=== PATIENT | female | born 1940 ===

== ENCOUNTER 2016-12-31 14:44 | Inpatient (IN) | payer MEDICARE, MEDICAID ==
[2016-12-31 14:45] VITALS: BMI 28.1
[2016-12-31] MEDS ORDERED: Albuterol-Ipratrop 3 mg / 0.5 (3 ml) UD ONE ×2 (15:15→17:09)
--- NOTE | 2016-12-31 15:26 | C.PDOC ---
History Of Present Illness 76 yr old female with PMHx of COPD, presents to the ER stating she started with a sore throat and a fever, was seen by her PMD Dr. Mckeon and was prescribed Levaquin and has been feeling better. However, states last night she started to feel SOB because her COPD exacerbated and has been coughing and wheezing with chest tightness. Patient reports she has been hospitalized many times in the past due to her COPD but has never been intubated. Patient currently denies fever or chills, reports she has been taking Levaquin daily as prescribed. Also has has a nebulizer at home, has been using it with all the medicine but has not had any relief. Also denies nausea, vomiting, abdominal pain, headache, weakness or numbness. Time Seen by Provider: 12/31/16 15:14 Chief Complaint (Nursing): Shortness Of Breath History Per: Patient History/Exam Limitations: no limitations Onset/Duration Of Symptoms: Days Current Symptoms Are (Timing): Still Present Current Respiratory Medications: See Home Med List Past Medical History Reviewed: Historical Data, Nursing Documentation, Vital Signs Vital Signs: Last Vital Signs Temp 98.2 F 12/31/16 15:10 Pulse 115 H 12/31/16 15:10 Resp 22 12/31/16 15:59 BP 151/86 H 12/31/16 15:10 Pulse Ox 98 12/31/16 18:03 - Medical History PMH: Anemia, Asthma, COPD, Diabetes, Emphysema, HTN, Hypercholesterolemia - [facility] Procedures MEASURE CARDIAC SAMPL & PRESSURE, BILATERAL, PERC (07/17/16) NON-INVASIVE MECHANICAL VENTILATION (11/15/13) PLAIN RADIOGRAPHY OF MULT COR ART USING L OSM CONTRAST (07/17/16) PLAIN RADIOGRAPHY OF R & L HEART USING L OSM CONTRAST (07/17/16) Family History: States: No Known Family Hx - Social History Hx Tobacco Use: No Hx Alcohol Use: No Hx Substance Use: No - Immunization History Hx Tetanus Toxoid Vaccination: No Hx Influenza Vaccination: No Hx Pneumococcal Vaccination: No Review Of Systems Except As Marked, All Systems Reviewed And Found Negative. Constitutional: Negative for: Fever, Chills Cardiovascular: Positive for: Other ((+) Chest tightness ) Respiratory: Positive for: Cough, Shortness of Breath. Negative for: Wheezing Gastrointestinal: Negative for: Nausea, Vomiting, Abdominal Pain Neurological: Negative for: Weakness, Numbness, Headache Physical Exam - Physical Exam Appears: Non-toxic, In Acute Distress (Visibly tachypnic), Other ((+) Speaking in short sentences. Coughing. ) Skin: Warm, Dry, No Rash Head: Atraumatic, Normacephalic Oral Mucosa: Moist Throat: Normal, No Erythema, No Exudate, No Drooling Neck: Normal, Normal ROM, Supple Chest: Symmetrical, No Tenderness Cardiovascular: Rhythm Regular, Other (Tachy ) Respiratory: No Rales, Wheezing (Bilaterally ) Gastrointestinal/Abdominal: Normal Exam, Soft, No Tenderness, No Guarding, No Rebound Extremity: Normal ROM, No Swelling Neurological/Psych: Oriented x3, Normal Motor, Normal Sensation ED Course And Treatment - Laboratory Results Result Diagrams: 12/31/16 16:56 12/31/16 16:56 Lab Interpretation: No Acute Changes ECG: Interpreted By Me ECG Rhythm: Sinus Rhythm (old Q waves III, AVF) ECG Interpretation: No Acute Changes O2 Sat by Pulse Oximetry: 98 Pulse Ox Interpretation: Normal - Other Rad CXR X-Ray: Viewed By Me, Read By Radiologist Interpretation: Accession No. : [id number]. Patient Name / ID : VALERY RIVERA / [id number]. Exam Date : 12/31/2016 16:57:02 ( Approved ). Study Comment : Sex / Age : F / 76Y. Creator : Francis Duron MD. Dictator : Francis Duron MD. Candle Wrapping Machine Operator : Audit Tech : Francis Duron MD. Approver2 : Report Date : 12/31/2016 17:49:13. My Comment : . PROCEDURE: CHEST RADIOGRAPH, 1 VIEW. HISTORY: SOB. COMPARISON: 07/17/2016. FINDINGS: LUNGS : Moderate venous congestion. Right chest wall port with tip extending to the cavoatrial junction. Elevated right hemidiaphragm. PLEURA: No pneumothorax or pleural fluid seen. CARDIOVASCULAR: Normal. OSSEOUS STRUCTURES: No significant abnormalities. VISUALIZED UPPER ABDOMEN: Normal. OTHER FINDINGS: None. IMPRESSION: Moderate venous congestion. Right chest wall port with tip extending to the cavoatrial junction. Elevated right hemidiaphragm. Progress Note: Patient treated with Lasix IV Reevaluation Time: 18:03 Reassessment Condition: Improved - Physician Consult Information Time Consulting Physician Contacted: 18:03 Physician Contacted: Chandan Parry Outcome Of Conversation: Patient to be admitted to [facility] for CHF and COPD exacerbation with respiratory distress. Disposition - Disposition Disposition: HOSPITALIZED Disposition Time: 18:34 Condition: IMPROVED - POA Present On Arrival: None - Clinical Impression Clinical Impression: Dyspnea, Acute exacerbation of chronic obstructive airways disease, CHF ( congestive heart failure) - Scribe Statement The provider has reviewed the documentation as recorded by the Dina Celeste Provider Attestation: All medical record entries made by the Meliibshonna were at my direction and personally dictated by me. I have reviewed the chart and agree that the record accurately reflects my personal performance of the history, physical exam, medical decision making, and the department course for this patient. I have also personally directed, reviewed, and agree with the discharge instructions and disposition.
[2016-12-31] MEDS ORDERED: Albuterol 0.083% Inhal Sol (2.5 mg/3 mL) UD IH STA (16:57)
[2016-12-31] MEDS ORDERED: Albuterol-Ipratrop 3 mg / 0.5 (3 ml) UD IH STA (16:57)
[2016-12-31] MEDS ORDERED: Albuterol 0.083% Inhal Sol (2.5 mg/3 mL) UD ONE (17:09)
[2016-12-31 17:10] LABS: BASO # 0.2 K/uL (0.0-0.2); BASO % 1.9 % (0.0-2.0); EOS # 0.1 K/uL (0.0-0.7); EOS % 1.2 % (0.0-4.0); LYMPH # 1.1 K/uL (1.0-4.3); LYMPH % 14.2 % (20.0-40.0); MEAN CELL VOLUME 77.9 fL (81.0-99.0); MEAN CORPUSCULAR HEMOGLOBIN 24.9 pg (27.0-31.0); MEAN PLATELET VOLUME 11.1 fL (7.2-11.7); MONO # 0.6 K/uL (0.0-0.8); MONO % 7.3 % (0.0-10.0); RED CELL DISTRIBUTION WIDTH 16.9 % (11.5-14.5); WHITE BLOOD COUNT 7.8 K/uL (4.8-10.8)
[2016-12-31 17:16] LABS: CHLORIDE 100 mmol/L (98-107)
[2016-12-31 17:17] LABS: POTASSIUM 3.6 mmol/L (3.6-5.2); SODIUM 139 mmol/L (132-148)
[2016-12-31 17:19] LABS: GFR AFRICAN-AMERICAN > 60
[2016-12-31 17:20] LABS: ALB/GLOB RATIO 1.4 (1.0-2.1); ALKALINE PHOSPHATASE 88 U/L (38-126); ALT/SGPT 44 U/L (9-52); AST/SGOT 51 U/L (14-36); BILIRUBIN,TOTAL 0.7 mg/dL (0.2-1.3); BLOOD UREA NITROGEN 6 mg/dL (7-17); CALCIUM 9.1 mg/dl (8.6-10.4); CARBON DIOXIDE 27 mmol/L (22-30); GLUCOSE,RANDOM 91 mg/dL (65-105); TOTAL PROTEIN 7.3 g/dL (6.3-8.3)
--- NOTE | 2016-12-31 17:51 | RAD ---
PROCEDURE: CHEST RADIOGRAPH, 1 VIEW HISTORY: SOB COMPARISON: 07/17/2016 FINDINGS: LUNGS: Moderate venous congestion. Right chest wall port with tip extending to the cavoatrial junction. Elevated right hemidiaphragm. PLEURA: No pneumothorax or pleural fluid seen. CARDIOVASCULAR: Normal. OSSEOUS STRUCTURES: No significant abnormalities. VISUALIZED UPPER ABDOMEN: Normal. OTHER FINDINGS: None. IMPRESSION: Moderate venous congestion. Right chest wall port with tip extending to the cavoatrial junction. Elevated right hemidiaphragm.
--- NOTE | 2016-12-31 20:51 | CP.PCM.PN ---
Subjective - Date & Time of Evaluation Date of Evaluation: 12/31/16 Time of Evaluation: 08:55 - Subjective Subjective: H&P dictated # [id number] Objective - Vital Signs/Intake and Output Vital Signs (last 24 hours): Temp Pulse Resp BP Pulse Ox 98.2 F 117 H 20 108/54 L 97 12/31/16 15:10 12/31/16 20:35 12/31/16 20:35 12/31/16 20:35 12/31/16 20:35 - Medications Medications: Current Medications Albuterol/Ipratropium (Duoneb 3 Mg/0.5 Mg (3 Ml) Ud) 3 ml INH RQ4 [facility] Furosemide (Lasix) 40 mg IVP DAILY [facility] Home Med (Aspirin [Aspirin]) 1 tab PO DAILY [facility] Home Med (Simvastatin [Simvastatin]) 1 tab PO DAILY [facility] Levothyroxine Sodium (Synthroid) 50 mcg PO DAILY@0630 [facility] Lisinopril (Zestril) 1 mg PO DAILY [facility] Methylprednisolone (Solu-Medrol) 40 mg IVP Q8H [facility] Montelukast Sodium (Singulair) 1 mg PO DAILY [facility] Pantoprazole Sodium (Protonix Ec Tab) 40 mg PO DAILY [facility] Fluticasone/Salmeterol (Advair Diskus 250/50) 1 puff INH RQ12 [facility]
[2016-12-31] MEDS: (Novolin R) Insulin Human Regular 100 units/ml vial SC SCH (21:36)
[2016-12-31] MEDS: MethylPREDNISolone 40 mg Vial IVP SCH (21:41)
[2017-01-01] MEDS ORDERED: Albuterol-Ipratrop 3 mg / 0.5 (3 ml) UD INH SCH
[2017-01-01] MEDS: Albuterol-Ipratrop 3 mg / 0.5 (3 ml) UD INH SCH ×5 (02:44→20:10)
[2017-01-01] MEDS ORDERED: Alum-Mag Hydrox-Simethicone Susp (30 mL) PO STA (02:46)
[2017-01-01 05:25] LABS: HEMATOCRIT 39.9 % (34.0-47.0); LYMPH # 0.7 K/uL (1.0-4.3); LYMPH % 11.7 % (20.0-40.0); MEAN CELL VOLUME 77.6 fL (81.0-99.0); MEAN CORPUSCULAR HEMOGLOBIN 24.9 pg (27.0-31.0); MEAN PLATELET VOLUME 11.1 fL (7.2-11.7); MONO # 0.1 K/uL (0.0-0.8); MONO % 0.9 % (0.0-10.0); RED CELL DISTRIBUTION WIDTH 16.6 % (11.5-14.5); WHITE BLOOD COUNT 6.2 K/uL (4.8-10.8)
[2017-01-01 05:38] LABS: CHLORIDE 95 mmol/L (98-107)
[2017-01-01 05:39] LABS: POTASSIUM 3.6 mmol/L (3.6-5.2); SODIUM 136 mmol/L (132-148)
[2017-01-01 05:41] LABS: ALB/GLOB RATIO 1.6 (1.0-2.1); AST/SGOT 41 U/L (14-36); BILIRUBIN,TOTAL 0.5 mg/dL (0.2-1.3); CARBON DIOXIDE 26 mmol/L (22-30); CHOLESTEROL 119 mg/dL (0-199); GFR AFRICAN-AMERICAN > 60; TOTAL PROTEIN 7.5 g/dL (6.3-8.3)
[2017-01-01 05:42] LABS: ALKALINE PHOSPHATASE 88 U/L (38-126); ALT/SGPT 47 U/L (9-52); BLOOD UREA NITROGEN 14 mg/dL (7-17); CALCIUM 9.4 mg/dl (8.6-10.4); GLUCOSE,RANDOM 214 mg/dL (65-105)
[2017-01-01] MEDS: Levothyroxine 50 MCG TAB PO SCH (05:49)
[2017-01-01] MEDS: MethylPREDNISolone 40 mg Vial IVP SCH ×3 (05:50→21:48)
[2017-01-01 06:14] LABS: THYROID STIMULATING HORMONE 0.51 mIU/L (0.46-4.68)
[2017-01-01] MEDS: (Novolin R) Insulin Human Regular 100 units/ml vial SC SCH ×4 (07:54→22:38)
[2017-01-01] MEDS: Fluticasone-Salmeterol 250-50mcg Diskus INH SCH (08:12)
[2017-01-01] MEDS: Promethazine 6.25 MG/5 ML CUP PO PRN ×2 (09:39→18:53)
[2017-01-01] MEDS: Pantoprazole 40 mg EC Tab PO SCH (09:40)
[2017-01-01] MEDS ORDERED: Home Med 1 UNIT (Linagliptin [Tradjenta] 5 MG) PO SCH (10:00)
--- NOTE | 2017-01-01 11:33 | CP.PCM.PN ---
Subjective - Date & Time of Evaluation Date of Evaluation: 01/01/17 Time of Evaluation: 11:20 - Subjective Subjective: Progress note dictated #[id number] Objective - Vital Signs/Intake and Output Vital Signs (last 24 hours): Temp Pulse Resp BP Pulse Ox 98.2 F 94 H 20 110/74 95 01/01/17 08:00 01/01/17 08:00 01/01/17 08:00 01/01/17 09:40 01/01/17 08:00 Intake and Output: 01/01/17 01/01/17 06:59 18:59 Intake Total 250 Balance 250 - Medications Medications: Current Medications Albuterol/Ipratropium (Duoneb 3 Mg/0.5 Mg (3 Ml) Ud) 3 ml INH Q6H [facility] Last Admin: 01/01/17 07:53 Dose: 3 ml Aspirin (Ecotrin) 81 mg PO DAILY [facility] Furosemide (Lasix) 40 mg IVP DAILY [facility] Last Admin: 01/01/17 09:40 Dose: 40 mg Home Med (Linagliptin [Tradjenta]) 5 mg PO DAILY [facility] Insulin Human Regular (Novolin R) 0 unit SC ACHS [facility] PRN Reason: Protocol Last Admin: 01/01/17 07:54 Dose: 2 unit Levothyroxine Sodium (Synthroid) 50 mcg PO DAILY@0630 [facility] Last Admin: 01/01/17 05:49 Dose: 50 mcg Methylprednisolone (Solu-Medrol) 40 mg IVP Q8H [facility] Last Admin: 01/01/17 05:50 Dose: 40 mg Montelukast Sodium (Singulair) 10 mg PO HS [facility] Pantoprazole Sodium (Protonix Ec Tab) 40 mg PO DAILY [facility] Last Admin: 01/01/17 09:40 Dose: 40 mg Promethazine HCl (Phenergan Syrup) 6.25 mg PO Q6H PRN PRN Reason: Cough Last Admin: 01/01/17 09:39 Dose: 6.25 mg Rosuvastatin Calcium (Crestor) 2.5 mg PO HS [facility] Fluticasone/Salmeterol (Advair Diskus 250/50) 1 puff INH RQ12 [facility] Last Admin: 01/01/17 08:12 Dose: 1 puff - Labs Labs: 01/01/17 05:16 01/01/17 05:16
[2017-01-01] MEDS ORDERED: Patient's Own Medication - Tablet/Capusle PO SCH (14:15)
[2017-01-01] MEDS: TRADJENTA 5 MG PO SCH (14:19)
--- NOTE | 2017-01-01 18:47 | PN ---
DATE: 01/01/2017 SUBJECTIVE: The patient was seen and examined at bedside. The patient is still complaining of cough with yellowish sputum. Denies any wheezing or shortness of breath. PHYSICAL EXAMINATION: GENERAL: Elderly female lying in bed in no acute distress. VITAL SIGNS: Blood pressure 106/68, pulse 101, respirations 20, temperature 97.3 degrees Fahrenheit, O2 sats 94% on room air. HEENT: Pupils equal, round, reacting to light and accommodation. Extraocular muscles intact. No ic terus, no pallor. NECK: Supple. No JVD. LUNGS: Bilateral vesicular breath sounds. Bilateral occasional crackles at the bases. CARDIOVASCULAR: S1, S2 present, regular. ABDOMEN: Soft, nontender. Bowel sounds present. No guarding, no rigidity, no rebound tenderness no barrett. CENTRAL NERVOUS SYSTEM: Alert, awake, oriented x 3. No focal deficits noted. EXTREMITIES: No edema. Palpable peripheral pulses. LABORATORY DATA: WBC 6.2, hemoglobin 12.8, hematocrit 39.9, platelets 177. Sodium 136, potassium 3. 6, chloride 95, bicarb 26, BUN 19, creatinine 0.8, glucose 214, calcium 9.4, AST 41, ALT 47, alkaline phosphatase 88. Cardiac enzymes x 3 negative. Cholesterol is 119, triglycerides 49, HDL 48, LDL 58 . TSH 0.51. ASSESSMENT AND PLAN: Elderly female with chronic obstructive pulmonary disease, diabetes mellitus, h yperlipidemia, hypothyroidism, coronary artery disease status post multiple caths, admitted for chron ic obstructive pulmonary disease exacerbation with acute bronchitis and palpitations. The patient is ruled out for any acute coronary syndrome. Continue with current medication. Now the patient claim s that she has been using BiPAP at home. Will reorder BiPAP, obtain pulmonary evaluation. Continue with nebulizer treatment and cough syrup. Will add further recommendation as her clinical course pro lauren. Chandan Parry MD cc: [id number] TT: 01/01/2017 18:46:09 Confirmation # [id number] Dictation # [id number] mn
[2017-01-01 19:39] LABS: LEGIONELLA AG URINE NEGATIVE (NEGATIVE)
[2017-01-01] MEDS: Rosuvastatin Calcium 2.5 mg Tab PO SCH (21:45)
--- NOTE | 2017-01-02 | CP.PCM.CON ---
History of Present Illness - History of Present Illness History of Present Illness: Patient seen and evaluated Dyspnea Troponin and ProBNP normal Check ECHO Past Patient History - Infectious Disease Hx of Infectious Diseases: None - Tetanus Immunizations Tetanus Immunization: Unknown - Past Medical History & Family History Past Medical History?: Yes - Past Social History Smoking Status: Never Smoked - CARDIAC Hx Hypercholesterolemia: Yes Hx Hypertension: Yes - PULMONARY Hx Asthma: Yes Hx Chronic Obstructive Pulmonary Disease (COPD): Yes Hx Emphysema: Yes - NEUROLOGICAL Hx Neurological Disorder: No - HEENT Hx HEENT Problems: No - RENAL Hx Chronic Kidney Disease: No - ENDOCRINE/METABOLIC Hx Diabetes Mellitus Type 2: Yes - HEMATOLOGICAL/ONCOLOGICAL Hx Anemia: Yes - INTEGUMENTARY Hx Dermatological Problems: No - MUSCULOSKELETAL/RHEUMATOLOGICAL Hx Musculoskeletal Disorders: No Hx Falls: No - GASTROINTESTINAL Hx Gastrointestinal Disorders: No - GENITOURINARY/GYNECOLOGICAL Hx Genitourinary Disorders: No - PSYCHIATRIC Hx Psychophysiologic Disorder: No Hx Substance Use: No - SURGICAL HISTORY Hx Surgeries: Yes Hx Section: Yes (x3) Hx Hysterectomy: Yes Hx Vascular Access Device: Yes Other/Comment: RIGHT SUBCLAVIAN [employer]. 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 - ANESTHESIA Hx Anesthesia: Yes Hx Anesthesia Reactions: No Hx Malignant Hyperthermia: No Meds Allergies/Adverse Reactions: Allergies Allergy/AdvReac Type Severity Reaction Status Date / Time No Known Allergies Allergy Verified 07/17/16 09:55 - Medications Medications: Current Medications Albuterol/Ipratropium (Duoneb 3 Mg/0.5 Mg (3 Ml) Ud) 3 ml INH RQ6 [facility] Aspirin (Ecotrin) 81 mg PO DAILY [facility] Last Admin: 01/01/17 13:45 Dose: 81 mg Furosemide (Lasix) 40 mg IVP DAILY [facility] Last Admin: 01/01/17 09:40 Dose: 40 mg Home Med (Patient's Own Medication) 5 tab PO DAILY [facility] Last Admin: 01/01/17 14:19 Dose: 5 tab Ceftriaxone Sodium 1 gm/ (Sodium Chloride) 100 mls @ 100 mls/hr IVPB Q24H [facility] Last Admin: 01/01/17 13:47 Dose: 100 mls/hr Insulin Human Regular (Novolin R) 0 unit SC ACHS [facility] PRN Reason: Protocol Last Admin: 01/01/17 22:38 Dose: Not Given Levothyroxine Sodium (Synthroid) 50 mcg PO DAILY@0630 [facility] Last Admin: 01/01/17 05:49 Dose: 50 mcg Methylprednisolone (Solu-Medrol) 40 mg IVP Q8H [facility] Last Admin: 01/01/17 21:48 Dose: 40 mg Montelukast Sodium (Singulair) 10 mg PO HS [facility] Last Admin: 01/01/17 21:45 Dose: 10 mg Pantoprazole Sodium (Protonix Ec Tab) 40 mg PO DAILY [facility] Last Admin: 01/01/17 09:40 Dose: 40 mg Promethazine HCl (Phenergan Syrup) 6.25 mg PO Q6H PRN PRN Reason: Cough Last Admin: 01/01/17 18:53 Dose: 6.25 mg Rosuvastatin Calcium (Crestor) 2.5 mg PO HS [facility] Last Admin: 01/01/17 21:45 Dose: 2.5 mg Fluticasone/Salmeterol (Advair Diskus 250/50) 1 puff INH RQ12 [facility] Last Admin: 01/01/17 08:12 Dose: 1 puff Zolpidem Tartrate (Ambien) 5 mg PO HS PRN PRN Reason: Insomnia Last Admin: 01/01/17 21:48 Dose: 5 mg Results - Vital Signs Recent Vital Signs: Last Vital Signs Temp 97.2 F L 01/01/17 16:20 Pulse 101 H 01/01/17 16:20 Resp 20 01/01/17 16:20 BP 106/68 01/01/17 16:20 Pulse Ox 94 L 01/01/17 16:20 - Labs Result Diagrams: 01/01/17 05:16 01/01/17 05:16 Labs: Laboratory Results - last 24 hr 12/31/16 01/01/17 01/01/17 21:27 00:03 05:16 WBC 6.2 RBC 5.13 Hgb 12.8 Hct 39.9 MCV 77.6 L MCH 24.9 L MCHC 32.0 L RDW 16.6 H Plt Count 177 MPV 11.1 Neut % (Auto) 87.4 H Lymph % (Auto) 11.7 L [place] % (Auto) 0.9 Eos % (Auto) 0.0 Baso % (Auto) 0.0 Neut # 5.5 Lymph # 0.7 L [place] # 0.1 Eos # 0.0 Baso # 0.0 Sodium Potassium Chloride Carbon Dioxide Anion Gap BUN Creatinine Est GFR ( Amer) Est GFR (Non-Af Amer) Random Glucose Calcium Total Bilirubin AST ALT Alkaline Phosphatase Troponin I < 0.0120 Total Protein Albumin Globulin Albumin/Globulin Ratio Triglycerides Cholesterol LDL Cholesterol Direct HDL Cholesterol TSH 3rd Generation Ur L.pneumophila Ag Negative 01/01/17 01/01/17 05:16 13:51 WBC RBC Hgb Hct MCV MCH MCHC RDW Plt Count MPV Neut % (Auto) Lymph % (Auto) [place] % (Auto) Eos % (Auto) Baso % (Auto) Neut # Lymph # [place] # Eos # Baso # Sodium 136 Potassium 3.6 Chloride 95 L Carbon Dioxide 26 Anion Gap 19 BUN 14 Creatinine 0.8 Est GFR ( Amer) > 60 Est GFR (Non-Af Amer) > 60 Random Glucose 214 H Calcium 9.4 Total Bilirubin 0.5 AST 41 H ALT 47 Alkaline Phosphatase 88 Troponin I < 0.0120 < 0.0120 Total Protein 7.5 Albumin 4.6 Globulin 2.9 Albumin/Globulin Ratio 1.6 Triglycerides 49 D Cholesterol 119 LDL Cholesterol Direct 58 HDL Cholesterol 48 TSH 3rd Generation 0.51 Ur L.pneumophila Ag
[2017-01-02] MEDS: Albuterol-Ipratrop 3 mg / 0.5 (3 ml) UD INH SCH ×3 (01:34→13:59)
[2017-01-02] MEDS: MethylPREDNISolone 40 mg Vial IVP SCH ×3 (05:50→22:00)
[2017-01-02] MEDS: Levothyroxine 50 MCG TAB PO SCH (06:05)
--- NOTE | 2017-01-02 07:26 | HP ---
CHIEF COMPLAINT: Progressive worsening of cough with shortness of breath, fever for 4 days. HISTORY OF PRESENT ILLNESS: The patient is a 76-year-old female with history of COPD, asthma, diabet es mellitus, hyperlipidemia, hypothyroidism, coronary artery disease, question of intermittent palpit ations has been following up with ____, came into the Emergency Department with symptoms of short ness of breath, fevers, cough for 4 days. History is obtained from the patient. As per the patient, she started having dry cough, headache, sh ortness of breath, feeling tired, fever up to 100 degrees Fahrenheit with dry cough initially for whi ch she was evaluated by her primary and pulmonary. The patient was given. Levaquin and cough medicin e the patient was taking. Her symptoms got worse, and she was having shortness of breath, had cough. Now she is having yellowish sputum and not able to walk to the bathroom without coughing, which mad e her come to the Emergency Room. She denies any headache, denies any chest pain, denies any nausea, vomiting, abdominal pain, diarrhea , or constipation. Denies any urinary symptoms. Denies any leg pains or leg cramps. Denies any oth er neurological concerns. PAST MEDICAL HISTORY: As described, COPD, diabetes mellitus, hyperlipidemia, hypothyroidism, CAD. PAST SURGICAL HISTORY: Had ____ C-sections ____, hysterectomy and 4 cardiac catheterizations. _ ___ is her assistant director of financial aid, and ____ is her patient service technician pst. FAMILY HISTORY: Diabetes mellitus. PERSONAL HISTORY: She is a , living alone, having 3 children, retired. SOCIAL HISTORY: Denies smoking, alcohol, or drug abuse. ALLERGIES: No known drug allergies. MEDICATIONS: Include prednisone, Cardizem 90 mg 3 times a day, Ambien 5 mg daily, Zocor 10 mg daily, aspirin 81 mg daily, theophylline 400 mg p.o. t.i.d., Synthroid 50 mcg daily, Neurontin ____ mg p.o. t.i.d., Singulair 10 mg daily, Colace 100 mg t.i.d., Levaquin 500 mg daily, promethazine, Tradjenta 5 mg daily, metformin 500 mg daily. REVIEW OF SYSTEMS: As described in history of present illness. All other systems ____ and were foun d to be negative. PHYSICAL EXAMINATION: GENERAL: Elderly female lying in bed in no acute distress. VITAL SIGNS: Blood pressure 108/54, pulse 117, respirations 20, temperature 98.2 degrees Fahrenheit, O2 sats 98% on 2 liters nasal cannula. HEENT: Pupils equal, round, reacting to light and accommodation. Extraocular muscles intact. No ic terus, no pallor. No oral thrush. Dry mucous membranes. Pharyngeal congestion noted. NECK: Supple. No JVD. LUNGS: Bilateral vesicular breath sounds. Wheezing present. Basal crackles heard. CARDIOVASCULAR: S1 and S2 present. Tachycardic. ABDOMEN: Soft, nontender. Bowel sounds present. No guarding, no rigidity. No rebound tenderness n oted. CENTRAL NERVOUS SYSTEM: Alert, awake, oriented x 3. No focal deficits noted. EXTREMITIES: No edema. Palpable peripheral pulses. LABORATORY DATA: Labs done from Emergency Department WBC 7.8, hemoglobin 12.8, hematocrit 40, platel ets 149. Sodium 139, potassium 3.6, chloride 100, bicarb 27, BUN 6, creatinine 0.7, glucose 91, calc ium 9.1, magnesium 2.0, total bilirubin 0.7, AST 51, ALT 44, alkaline phosphatase 88. BNP 91.5, tota l protein 7.3, albumin 4.2, globulin 3.1. EKG: Normal sinus rhythm, no acute ST-T changes noted. Chest x-ray: Moderate venous congestion, right chest ____ with tip extending to the cavoatrial junct ion, elevated right hemidiaphragm. ASSESSMENT AND PLAN: Elderly female with history of coronary artery disease, chronic obstructive pul monary disease, hyperlipidemia, hypothyroidism, diabetes mellitus, admitted for a ____-day history of cough with yellowish sputum, shortness of breath, fever, and feeling tired, and not able to walk to the bathroom, with shortness of breath and cough. In the Emergency Department, the patient was found to be having abnormal chest x-ray and found to be having chronic obstructive pulmonary disease exace rbation, and the patient is being admitted for further management. 1. Acute chronic obstructive pulmonary disease exacerbation versus acute bronchitis. 2. Coronary artery disease with congestive heart failure exacerbation. 3. Diabetes mellitus. 4. Hyperlipidemia. 5. Hypothyroidism. PLAN: The patient is being admitted to telemetry. We will do serial cardiac enzymes, serial EKGs. We will check echocardiogram. The patient received Solu-Medrol in the Emergency Department. Will co ntinue with Solu-Medrol 40 mg IV q. 8 hours. We will give nebulizer treatment. Continue with Singul air, theophylline. ____ for cough. We will get pulmonary and cardiology evaluations. We will do fl uid restriction, low-salt diet. Continue with her home medications for diabetes, do Accu-Cheks q. a. c. and at bedtime, and check hemoglobin A1c level. Continue with Cardizem. We will give empirically Rocephin 1 gram IV daily. We will check sputum gram stain culture and sensitivity, check UA and uri ne culture. We will add further recommendation, as her clinical course progresses. Chandan Parry MD cc: [phone] TT: 01/01/2017 09:36:12 jn
[2017-01-02] MEDS: (Novolin R) Insulin Human Regular 100 units/ml vial SC SCH ×4 (08:24→22:10)
[2017-01-02] MEDS: Fluticasone-Salmeterol 250-50mcg Diskus INH SCH ×2 (09:30→19:32)
[2017-01-02] MEDS: Pantoprazole 40 mg EC Tab PO SCH (10:07)
[2017-01-02] MEDS: TRADJENTA 5 MG PO SCH (10:08)
--- NOTE | 2017-01-02 10:47 | CP.PCM.PN ---
Subjective - Date & Time of Evaluation Date of Evaluation: 01/02/17 Time of Evaluation: 10:40 - Subjective Subjective: Progress note dictated #[id number] Objective - Vital Signs/Intake and Output Vital Signs (last 24 hours): Temp Pulse Resp BP Pulse Ox 97.8 F 79 20 113/79 97 01/02/17 07:10 01/02/17 09:18 01/02/17 07:10 01/02/17 10:07 01/02/17 07:10 Intake and Output: 01/02/17 01/02/17 06:59 18:59 Intake Total 240 Balance 240 - Medications Medications: Current Medications Albuterol/Ipratropium (Duoneb 3 Mg/0.5 Mg (3 Ml) Ud) 3 ml INH RQ6 [facility] Last Admin: 01/02/17 09:17 Dose: 3 ml Aspirin (Ecotrin) 81 mg PO DAILY [facility] Last Admin: 01/02/17 10:07 Dose: 81 mg Furosemide (Lasix) 40 mg IVP DAILY [facility] Last Admin: 01/02/17 10:07 Dose: 40 mg Heparin Sodium (Porcine) (Heparin) 5,000 units SC Q8 [facility] Home Med (Patient's Own Medication) 5 tab PO DAILY [facility] Last Admin: 01/02/17 10:08 Dose: 5 tab Ceftriaxone Sodium 1 gm/ (Sodium Chloride) 100 mls @ 100 mls/hr IVPB Q24H [facility] Last Admin: 01/01/17 13:47 Dose: 100 mls/hr Insulin Human Regular (Novolin R) 0 unit SC ACHS [facility] PRN Reason: Protocol Last Admin: 01/02/17 08:24 Dose: 3 unit Levothyroxine Sodium (Synthroid) 50 mcg PO DAILY@0630 [facility] Last Admin: 01/02/17 06:05 Dose: 50 mcg Methylprednisolone (Solu-Medrol) 40 mg IVP Q8H [facility] Last Admin: 01/02/17 05:50 Dose: 40 mg Montelukast Sodium (Singulair) 10 mg PO HS [facility] Last Admin: 01/01/17 21:45 Dose: 10 mg Pantoprazole Sodium (Protonix Ec Tab) 40 mg PO DAILY [facility] Last Admin: 01/02/17 10:07 Dose: 40 mg Promethazine HCl (Phenergan Syrup) 6.25 mg PO Q6H PRN PRN Reason: Cough Last Admin: 01/01/17 18:53 Dose: 6.25 mg Rosuvastatin Calcium (Crestor) 2.5 mg PO HS [facility] Last Admin: 01/01/17 21:45 Dose: 2.5 mg Fluticasone/Salmeterol (Advair Diskus 250/50) 1 puff INH RQ12 [facility] Last Admin: 01/01/17 08:12 Dose: 1 puff Zolpidem Tartrate (Ambien) 5 mg PO HS PRN PRN Reason: Insomnia Last Admin: 01/01/17 21:48 Dose: 5 mg - Labs Labs: 01/01/17 05:16 01/01/17 05:16
[2017-01-02 11:35] LABS: BASO % 0.1 % (0.0-2.0); HEMATOCRIT 41.7 % (34.0-47.0); LYMPH # 0.7 K/uL (1.0-4.3); LYMPH % 4.4 % (20.0-40.0); MEAN CELL VOLUME 77.6 fL (81.0-99.0); MEAN CORPUSCULAR HGB CONC 32.2 g/dL (33.0-37.0); MEAN PLATELET VOLUME 10.9 fL (7.2-11.7); MONO # 0.3 K/uL (0.0-0.8); MONO % 1.9 % (0.0-10.0); PLATELET COUNT 195 K/uL (130-400)
[2017-01-02 11:39] LABS: WHITE BLOOD COUNT 16.9 K/uL (4.8-10.8)
[2017-01-02 11:52] LABS: CHLORIDE 95 mmol/L (98-107); POTASSIUM 4.1 mmol/L (3.6-5.2); SODIUM 137 mmol/L (132-148)
--- NOTE | 2017-01-02 11:52 | CP.PCM.CON ---
History of Present Illness - History of Present Illness History of Present Illness: reason for consultation: shortness of breath and cough ] 76 yr old female with PMHx of COPD, presents to the ER stating she started with a sore throat and a fever, was seen by her PMD and was prescribed Levaquin and has been feeling better, later on monday she started to feel SOB because her COPD exacerbated and coughing and wheezing with chest tightness. Also has has a nebulizer at home, has been using it with all the medicine but has not had any relief. Also denies nausea, vomiting, abdominal pain, headache, weakness or numbness. Review of Systems - Review of Systems All systems: reviewed and no additional remarkable complaints except (Shortness of breath and cough) Past Patient History - Infectious Disease Hx of Infectious Diseases: None - Tetanus Immunizations Tetanus Immunization: Unknown - Past Medical History & Family History Past Medical History?: Yes - Past Social History Smoking Status: Never Smoked - CARDIAC Hx Hypercholesterolemia: Yes Hx Hypertension: Yes - PULMONARY Hx Asthma: Yes Hx Chronic Obstructive Pulmonary Disease (COPD): Yes Hx Emphysema: Yes - NEUROLOGICAL Hx Neurological Disorder: No - HEENT Hx HEENT Problems: No - RENAL Hx Chronic Kidney Disease: No - ENDOCRINE/METABOLIC Hx Diabetes Mellitus Type 2: Yes - HEMATOLOGICAL/ONCOLOGICAL Hx Anemia: Yes - INTEGUMENTARY Hx Dermatological Problems: No - MUSCULOSKELETAL/RHEUMATOLOGICAL Hx Musculoskeletal Disorders: No Hx Falls: No - GASTROINTESTINAL Hx Gastrointestinal Disorders: No - GENITOURINARY/GYNECOLOGICAL Hx Genitourinary Disorders: No - PSYCHIATRIC Hx Psychophysiologic Disorder: No Hx Substance Use: No - SURGICAL HISTORY Hx Surgeries: Yes Hx Section: Yes (x3) Hx Hysterectomy: Yes Hx Vascular Access Device: Yes Other/Comment: RIGHT [employer]CLAVIAN [employer]. 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 - ANESTHESIA Hx Anesthesia: Yes Hx Anesthesia Reactions: No Hx Malignant Hyperthermia: No Meds Allergies/Adverse Reactions: Allergies Allergy/AdvReac Type Severity Reaction Status Date / Time No Known Allergies Allergy Verified 07/17/16 09:55 - Medications Medications: Current Medications Albuterol/Ipratropium (Duoneb 3 Mg/0.5 Mg (3 Ml) Ud) 3 ml INH RQ6 [facility] Last Admin: 01/02/17 09:17 Dose: 3 ml Aspirin (Ecotrin) 81 mg PO DAILY [facility] Last Admin: 01/02/17 10:07 Dose: 81 mg Furosemide (Lasix) 40 mg IVP DAILY [facility] Last Admin: 01/02/17 10:07 Dose: 40 mg Heparin Sodium (Porcine) (Heparin) 5,000 units SC Q8 [facility] Home Med (Patient's Own Medication) 5 tab PO DAILY [facility] Last Admin: 01/02/17 10:08 Dose: 5 tab Ceftriaxone Sodium 1 gm/ (Sodium Chloride) 100 mls @ 100 mls/hr IVPB Q24H [facility] Last Admin: 01/01/17 13:47 Dose: 100 mls/hr Insulin Human Regular (Novolin R) 0 unit SC ACHS [facility] PRN Reason: Protocol Last Admin: 01/02/17 11:42 Dose: 3 unit Levothyroxine Sodium (Synthroid) 50 mcg PO DAILY@0630 [facility] Last Admin: 01/02/17 06:05 Dose: 50 mcg Methylprednisolone (Solu-Medrol) 40 mg IVP Q8H [facility] Last Admin: 01/02/17 05:50 Dose: 40 mg Montelukast Sodium (Singulair) 10 mg PO HS [facility] Last Admin: 01/01/17 21:45 Dose: 10 mg Pantoprazole Sodium (Protonix Ec Tab) 40 mg PO DAILY [facility] Last Admin: 01/02/17 10:07 Dose: 40 mg Promethazine HCl (Phenergan Syrup) 6.25 mg PO Q6H PRN PRN Reason: Cough Last Admin: 01/01/17 18:53 Dose: 6.25 mg Rosuvastatin Calcium (Crestor) 2.5 mg PO HS [facility] Last Admin: 01/01/17 21:45 Dose: 2.5 mg Fluticasone/Salmeterol (Advair Diskus 250/50) 1 puff INH RQ12 [facility] Last Admin: 01/01/17 08:12 Dose: 1 puff Zolpidem Tartrate (Ambien) 5 mg PO HS PRN PRN Reason: Insomnia Last Admin: 01/01/17 21:48 Dose: 5 mg Physical Exam - Constitutional Appears: No Acute Distress - Head Exam Head Exam: ATRAUMATIC, NORMOCEPHALIC - Eye Exam Eye Exam: Normal appearance - ENT Exam ENT Exam: Mucous Membranes Moist - Neck Exam Neck exam: Positive for: Normal Inspection - Respiratory Exam Respiratory Exam: Rhonchi, Wheezes - Cardiovascular Exam Cardiovascular Exam: REGULAR RHYTHM - GI/Abdominal Exam GI & Abdominal Exam: Normal Bowel Sounds, Soft - Extremities Exam Extremities exam: Positive for: normal inspection Results - Vital Signs Recent Vital Signs: Last Vital Signs Temp 97.8 F 01/02/17 07:10 Pulse 79 01/02/17 09:18 Resp 20 01/02/17 07:10 BP 113/79 01/02/17 10:07 Pulse Ox 97 01/02/17 07:10 - Labs Result Diagrams: 01/02/17 11:22 01/02/17 11:22 Labs: Laboratory Results - last 24 hr 12/31/16 01/01/17 01/02/17 21:27 13:51 11:22 WBC 16.9 H D RBC 5.37 H Hgb 13.4 Hct 41.7 MCV 77.6 L MCH 25.0 L MCHC 32.2 L RDW 17.0 H Plt Count 195 MPV 10.9 Neut % (Auto) 93.6 H Lymph % (Auto) 4.4 L Alpine % (Auto) 1.9 Eos % (Auto) 0.0 Baso % (Auto) 0.1 Neut # 15.8 H Lymph # 0.7 L Alpine # 0.3 Eos # 0.0 Baso # 0.0 Troponin I < 0.0120 Ur L.pneumophila Ag Negative Assessment & Plan (1) Acute exacerbation of chronic obstructive airways disease Status: Acute Comment: chest x-ray consistent with venous han but no infiltrate. Patient complaining of shortness of breath and cough. continue antibiotics, IV steroids and bronchodilators
[2017-01-02 11:54] LABS: BILIRUBIN,TOTAL 0.6 mg/dL (0.2-1.3); CARBON DIOXIDE 28 mmol/L (22-30); GFR AFRICAN-AMERICAN > 60
[2017-01-02 11:55] LABS: ALB/GLOB RATIO 1.4 (1.0-2.1); ALKALINE PHOSPHATASE 91 U/L (38-126); ALT/SGPT 37 U/L (9-52); AST/SGOT 41 U/L (14-36); BLOOD UREA NITROGEN 25 mg/dL (7-17); CALCIUM 8.9 mg/dl (8.6-10.4); GLUCOSE,RANDOM 258 mg/dL (65-105); TOTAL PROTEIN 7.7 g/dL (6.3-8.3)
[2017-01-02 12:20] LABS: NEUTROPHIL 89 % (50-75); TOTAL CELLS COUNTED 100
[2017-01-02 12:21] LABS: LARGE PLATELETS PRESENT
[2017-01-02] MEDS: Promethazine 6.25 MG/5 ML CUP PO PRN (13:50)
--- NOTE | 2017-01-02 22:11 | CP.PCM.PN ---
Subjective - Date & Time of Evaluation Date of Evaluation: 01/02/17 Time of Evaluation: 12:10 - Subjective Subjective: Patiet seen and evaluated Breathing slighlty better Review of Systems - Review of Systems All systems: reviewed and no additional remarkable complaints except (Shortness of breath and cough) Physical Exam - Constitutional Appears: No Acute Distress - Head Exam Head Exam: ATRAUMATIC, NORMOCEPHALIC - Eye Exam Eye Exam: Normal appearance - ENT Exam ENT Exam: Mucous Membranes Moist - Neck Exam Neck exam: Positive for: Normal Inspection - Respiratory Exam Respiratory Exam: Rhonchi, Wheezes - Cardiovascular Exam Cardiovascular Exam: REGULAR RHYTHM - GI/Abdominal Exam GI & Abdominal Exam: Normal Bowel Sounds, Soft - Extremities Exam Extremities exam: Positive for: normal inspection Objective - Vital Signs/Intake and Output Vital Signs (last 24 hours): Temp Pulse Resp BP Pulse Ox 98 F 94 H 20 98/52 L 96 01/02/17 15:00 01/02/17 15:30 01/02/17 15:00 01/02/17 15:00 01/02/17 15:00 - Medications Medications: Current Medications Albuterol/Ipratropium (Duoneb 3 Mg/0.5 Mg (3 Ml) Ud) 3 ml INH RQ6 [facility] Last Admin: 01/02/17 13:59 Dose: 3 ml Aspirin (Ecotrin) 81 mg PO DAILY [facility] Last Admin: 01/02/17 10:07 Dose: 81 mg Furosemide (Lasix) 40 mg IVP DAILY [facility] Last Admin: 01/02/17 10:07 Dose: 40 mg Heparin Sodium (Porcine) (Heparin) 5,000 units SC Q8 [facility] Last Admin: 01/02/17 13:39 Dose: 5,000 units Home Med (Patient's Own Medication) 5 tab PO DAILY [facility] Last Admin: 01/02/17 10:08 Dose: 5 tab Ceftriaxone Sodium 1 gm/ (Sodium Chloride) 100 mls @ 100 mls/hr IVPB Q24H [facility] Last Admin: 01/02/17 13:31 Dose: 100 mls/hr Insulin Human Regular (Novolin R) 0 unit SC ACHS [facility] PRN Reason: Protocol Last Admin: 01/02/17 17:11 Dose: 5 unit Levothyroxine Sodium (Synthroid) 50 mcg PO DAILY@0630 [facility] Last Admin: 05/22/17 06:05 Dose: 50 mcg Methylprednisolone (Solu-Medrol) 40 mg IVP Q8H [facility] Last Admin: 01/02/17 13:31 Dose: 40 mg Montelukast Sodium (Singulair) 10 mg PO HS [facility] Last Admin: 01/01/17 21:45 Dose: 10 mg Pantoprazole Sodium (Protonix Ec Tab) 40 mg PO DAILY [facility] Last Admin: 01/02/17 10:07 Dose: 40 mg Promethazine HCl (Phenergan Syrup) 6.25 mg PO Q6H PRN PRN Reason: Cough Last Admin: 01/02/17 13:50 Dose: 6.25 mg Rosuvastatin Calcium (Crestor) 2.5 mg PO HS [facility] Last Admin: 01/01/17 21:45 Dose: 2.5 mg Fluticasone/Salmeterol (Advair Diskus 250/50) 1 puff INH RQ12 [facility] Last Admin: 01/02/17 19:32 Dose: 1 puff Zolpidem Tartrate (Ambien) 5 mg PO HS PRN PRN Reason: Insomnia Last Admin: 01/01/17 21:48 Dose: 5 mg - Labs Labs: 01/02/17 11:22 01/02/17 11:22 Assessment and Plan - Assessment and Plan (Free Text) Assessment: Dyspnea most likely Pulmonary etiology Unlikely CHF Non Obstructive CAD Medical management
[2017-01-02] MEDS: Rosuvastatin Calcium 2.5 mg Tab PO SCH (22:15)
[2017-01-03] MEDS: Albuterol-Ipratrop 3 mg / 0.5 (3 ml) UD INH SCH ×4 (01:32→20:25)
--- NOTE | 2017-01-03 02:26 | PN ---
DATE: 01/02/2017 SUBJECTIVE: The patient was seen and examined on rounds this morning. The patient is feeling much b delilah than yesterday. Denies any headache, dizziness. Denies any chest pain, shortness of breath or wheezing. Denies any nausea, vomiting, abdominal pain, diarrhea or constipation. Denies any urinar y complaints. Leg swelling is improving better. Denies any other neurologic symptoms. PHYSICAL EXAMINATION: GENERAL: Elderly male lying in bed in no acute distress. VITAL SIGNS: Blood pressure 113/79, pulse 81, respiration 16, temperature 98 degrees Fahrenheit, O2 sat is 96% on 2 liters nasal cannula. HEENT: Pupils equal, round, reacting to light and accommodation. Extraocular muscles intact. No ic terus, no pallor. No oral thrush. No pharyngeal congestion. NECK: Supple. No JVD. LUNGS: Bilateral vesicular breath sounds. No wheezing, no rhonchi. CARDIOVASCULAR: S1, S2 present, regular. ABDOMEN: Soft, nontender. Bowel sounds present. CENTRAL NERVOUS SYSTEM: Alert, awake, oriented x 3. No focal deficits noted. EXTREMITIES: No edema. Palpable peripheral pulses. MEDICATIONS: Include DuoNeb, Aspirin 81 mg daily, Rocephin 1 gram daily, Lasix 40 mg daily, heparin 5000 units subq q. 8 hours, Tradjenta, Synthroid 50 mcg daily, Solu-Medrol 40 mg IV q. 8 hours, Singu lair 10 mg at bedtime, Protonix 40 mg p.o. daily, promethazine as needed, Crestor, Advair, Ambien. LABORATORY DATA: From this morning, WBC 16.9, hemoglobin 13.4, hematocrit 41.7, platelets 195. Sodi um 137, potassium 4.1, chloride 95, bicarbonate 28, BUN 25, creatinine 0.9, glucose 280, calcium 8.9, total bilirubin 0.6, AST 41, ALT 37, alkaline phosphatase 91. Total protein 7.7, albumin 4.5. Sput um culture pending. ASSESSMENT AND PLAN: Elderly female with history of chronic obstructive pulmonary disease, asthma, d iabetes mellitus, hyperlipidemia, hypothyroidism, coronary artery disease, admitted for chronic obstr uctive pulmonary disease exacerbation and bronchitis. The patient's symptoms are better than yesterd ay. Will continue with steroids, bronchodilation, nebulizer and antibiotics. Continue with her home medication. Will add further recommendation as her clinical course progresses. Chandan Parry MD cc: [id number] TT: 01/03/2017 02:26:29 Confirmation # [id number] Dictation # [id number]
[2017-01-03] MEDS: Levothyroxine 50 MCG TAB PO SCH (05:34)
[2017-01-03] MEDS: MethylPREDNISolone 40 mg Vial IVP SCH ×3 (05:35→21:35)
[2017-01-03 06:35] LABS: BASO % 0.1 % (0.0-2.0); HEMATOCRIT 38.5 % (34.0-47.0); LYMPH # 1.1 K/uL (1.0-4.3); LYMPH % 7.6 % (20.0-40.0); MEAN CELL VOLUME 78.2 fL (81.0-99.0); MEAN PLATELET VOLUME 11.3 fL (7.2-11.7); MONO # 0.4 K/uL (0.0-0.8); MONO % 2.6 % (0.0-10.0); PLATELET COUNT 187 K/uL (130-400); RED CELL DISTRIBUTION WIDTH 16.5 % (11.5-14.5); WHITE BLOOD COUNT 14.2 K/uL (4.8-10.8)
[2017-01-03 06:39] LABS: CHLORIDE 97 mmol/L (98-107); SODIUM 134 mmol/L (132-148)
[2017-01-03 06:40] LABS: POTASSIUM 4.1 mmol/L (3.6-5.2)
[2017-01-03 06:42] LABS: ALB/GLOB RATIO 1.4 (1.0-2.1); ALKALINE PHOSPHATASE 93 U/L (38-126); ALT/SGPT 33 U/L (9-52); AST/SGOT 29 U/L (14-36); BILIRUBIN,TOTAL 0.5 mg/dL (0.2-1.3); BLOOD UREA NITROGEN 21 mg/dL (7-17); CALCIUM 8.6 mg/dl (8.6-10.4); CARBON DIOXIDE 28 mmol/L (22-30); GFR AFRICAN-AMERICAN > 60; GLUCOSE,RANDOM 295 mg/dL (65-105); TOTAL PROTEIN 6.5 g/dL (6.3-8.3)
[2017-01-03] MEDS: Fluticasone-Salmeterol 250-50mcg Diskus INH SCH ×2 (07:49→20:25)
[2017-01-03] MEDS: (Novolin R) Insulin Human Regular 100 units/ml vial SC SCH ×4 (08:05→21:35)
[2017-01-03 08:32] LABS: NEUTROPHIL 94 % (50-75); TOTAL CELLS COUNTED 100
[2017-01-03] MEDS: TRADJENTA 5 MG PO SCH (09:29)
[2017-01-03] MEDS: Pantoprazole 40 mg EC Tab PO SCH (09:29)
[2017-01-03] MEDS ORDERED: Theophylline 200mg ER 24 hrs Cap PO SCH (10:00)
--- NOTE | 2017-01-03 10:46 | CP.PCM.PN ---
Subjective - Date & Time of Evaluation Date of Evaluation: 01/03/17 Time of Evaluation: 10:40 - Subjective Subjective: Progress note dictated #[id number] Objective - Vital Signs/Intake and Output Vital Signs (last 24 hours): Temp Pulse Resp BP Pulse Ox 98.2 F 52 L 20 129/66 98 01/03/17 07:10 01/03/17 07:10 01/03/17 07:10 01/03/17 09:36 01/03/17 07:10 Intake and Output: 01/03/17 01/03/17 06:59 18:59 Intake Total 350 Balance 350 - Medications Medications: Current Medications Albuterol/Ipratropium (Duoneb 3 Mg/0.5 Mg (3 Ml) Ud) 3 ml INH RQ6 [facility] Last Admin: 01/03/17 07:48 Dose: 3 ml Aspirin (Ecotrin) 81 mg PO DAILY [facility] Last Admin: 01/03/17 09:29 Dose: 81 mg Furosemide (Lasix) 40 mg IVP DAILY [facility] Last Admin: 01/03/17 09:36 Dose: 40 mg Heparin Sodium (Porcine) (Heparin) 5,000 units SC Q8 [facility] Last Admin: 01/03/17 05:35 Dose: 5,000 units Home Med (Patient's Own Medication) 5 tab PO DAILY [facility] Last Admin: 01/03/17 09:29 Dose: 5 tab Home Med (Theophylline [Tayo-24]) 400 mg PO BID [facility] Ceftriaxone Sodium 1 gm/ (Sodium Chloride) 100 mls @ 100 mls/hr IVPB Q24H [facility] Last Admin: 01/02/17 13:31 Dose: 100 mls/hr Insulin Human Regular (Novolin R) 0 unit SC ACHS [facility] PRN Reason: Protocol Last Admin: 01/03/17 08:05 Dose: 4 unit Levothyroxine Sodium (Synthroid) 50 mcg PO DAILY@0630 [facility] Last Admin: 01/03/17 05:34 Dose: 50 mcg Methylprednisolone (Solu-Medrol) 40 mg IVP Q8H [facility] Last Admin: 01/03/17 05:35 Dose: 40 mg Montelukast Sodium (Singulair) 10 mg PO HS [facility] Last Admin: 01/02/17 22:15 Dose: 10 mg Pantoprazole Sodium (Protonix Ec Tab) 40 mg PO DAILY [facility] Last Admin: 01/03/17 09:29 Dose: 40 mg Promethazine HCl (Phenergan Syrup) 6.25 mg PO Q6H PRN PRN Reason: Cough Last Admin: 01/02/17 13:50 Dose: 6.25 mg Rosuvastatin Calcium (Crestor) 2.5 mg PO HS [facility] Last Admin: 01/02/17 22:15 Dose: 2.5 mg Fluticasone/Salmeterol (Advair Diskus 250/50) 1 puff INH RQ12 [facility] Last Admin: 01/03/17 07:49 Dose: 1 puff Zolpidem Tartrate (Ambien) 5 mg PO HS PRN PRN Reason: Insomnia Last Admin: 01/02/17 22:15 Dose: 5 mg - Labs Labs: 01/03/17 06:15 01/03/17 06:15
--- NOTE | 2017-01-03 12:44 | CP.PCM.PN ---
Subjective - Date & Time of Evaluation Date of Evaluation: 01/03/17 Time of Evaluation: 09:50 - Subjective Subjective: Patient seen and examined. Still complaining of cough, shortness of breath and wheezing. Denies fever or chills, denies chest pain Objective - Vital Signs/Intake and Output Vital Signs (last 24 hours): Temp Pulse Resp BP Pulse Ox 98.2 F 66 20 129/66 98 01/03/17 07:10 01/03/17 09:00 01/03/17 07:10 01/03/17 09:36 01/03/17 07:10 Intake and Output: 01/03/17 01/03/17 06:59 18:59 Intake Total 350 Balance 350 - Medications Medications: Current Medications Albuterol/Ipratropium (Duoneb 3 Mg/0.5 Mg (3 Ml) Ud) 3 ml INH RQ6 [facility] Last Admin: 01/03/17 07:48 Dose: 3 ml Aspirin (Ecotrin) 81 mg PO DAILY [facility] Last Admin: 01/03/17 09:29 Dose: 81 mg Furosemide (Lasix) 40 mg IVP DAILY [facility] Last Admin: 01/03/17 09:36 Dose: 40 mg Heparin Sodium (Porcine) (Heparin) 5,000 units SC Q8 [facility] Last Admin: 01/03/17 05:35 Dose: 5,000 units Home Med (Patient's Own Medication) 5 tab PO DAILY [facility] Last Admin: 01/03/17 09:29 Dose: 5 tab Home Med (Theophylline [Tayo-24]) 400 mg PO BID [facility] Ceftriaxone Sodium 1 gm/ (Sodium Chloride) 100 mls @ 100 mls/hr IVPB Q24H [facility] Last Admin: 01/02/17 13:31 Dose: 100 mls/hr Insulin Human Regular (Novolin R) 0 unit SC ACHS [facility] PRN Reason: Protocol Last Admin: 01/03/17 08:05 Dose: 4 unit Levothyroxine Sodium (Synthroid) 50 mcg PO DAILY@0630 [facility] Last Admin: 01/03/17 05:34 Dose: 50 mcg Methylprednisolone (Solu-Medrol) 40 mg IVP Q8H [facility] Last Admin: 01/03/17 05:35 Dose: 40 mg Montelukast Sodium (Singulair) 10 mg PO HS [facility] Last Admin: 01/02/17 22:15 Dose: 10 mg Pantoprazole Sodium (Protonix Ec Tab) 40 mg PO DAILY [facility] Last Admin: 01/03/17 09:29 Dose: 40 mg Promethazine HCl (Phenergan Syrup) 6.25 mg PO Q6H PRN PRN Reason: Cough Last Admin: 01/02/17 13:50 Dose: 6.25 mg Rosuvastatin Calcium (Crestor) 2.5 mg PO HS [facility] Last Admin: 01/02/17 22:15 Dose: 2.5 mg Fluticasone/Salmeterol (Advair Diskus 250/50) 1 puff INH RQ12 [facility] Last Admin: 01/03/17 07:49 Dose: 1 puff Zolpidem Tartrate (Ambien) 5 mg PO HS PRN PRN Reason: Insomnia Last Admin: 01/02/17 22:15 Dose: 5 mg - Labs Labs: 01/03/17 06:15 01/03/17 06:15 - Head Exam Head Exam: ATRAUMATIC, NORMOCEPHALIC - Eye Exam Eye Exam: Normal appearance - ENT Exam ENT Exam: Mucous Membranes Moist - Neck Exam Neck Exam: Normal Inspection - Respiratory Exam Respiratory Exam: Rales, Rhonchi, Wheezes - Cardiovascular Exam Cardiovascular Exam: REGULAR RHYTHM - GI/Abdominal Exam GI & Abdominal Exam: Soft, Normal Bowel Sounds - Extremities Exam Extremities Exam: Normal Inspection Assessment and Plan (1) Acute exacerbation of chronic obstructive airways disease Assessment & Plan: Continue IV antibiotics, IV steroids and bronchodilators Status: Acute
[2017-01-03] MEDS: Promethazine 6.25 MG/5 ML CUP PO PRN (13:37)
[2017-01-03] MEDS ORDERED: Promethazine 6.25 MG/5 ML CUP PO PRN (16:30)
[2017-01-03] MEDS: Rosuvastatin Calcium 2.5 mg Tab PO SCH (21:34)
--- NOTE | 2017-01-04 00:43 | PN ---
DATE: 01/03/2017 HISTORY OF PRESENT ILLNESS: The patient was seen and examined at bedside. The patient is still comp laining of cough on exertion and shortness of breath on exertion. Denies any headache, dizziness. D enies any nausea, vomiting, abdominal pain, diarrhea or constipation. Denies any urinary complaints. Denies any leg pains or leg cramps. REVIEW OF SYSTEMS: All other systems reviewed and were found to be negative. PHYSICAL EXAMINATION: GENERAL: Elderly female lying in bed in no acute distress. VITAL SIGNS: Blood pressure 112/74, pulse 80, respirations 20, temperature 97.1 degrees Fahrenheit, O2 sat is 96% on room air. HEENT: Pupils equal, round, reacting to light and accommodation. Extraocular muscles intact. No ic terus, no pallor. No oral thrush. No pharyngeal congestion. NECK: Supple. No JVD. LUNGS: Bilateral vesicular breath sounds. Occasional wheezing, no rhonchi. CARDIOVASCULAR: S1, S2 present, regular. ABDOMEN: Soft, nontender. Bowel sounds present. No guarding, no rigidity, no rebound tenderness no barrett. CENTRAL NERVOUS SYSTEM: Alert, awake, oriented x 3. No focal deficits noted. EXTREMITIES: No edema. Palpable peripheral pulses. MEDICATIONS: Albuterol, aspirin 81 mg daily, 1 gram daily, Lasix 40 mg IV daily, heparin 5000 units subQ q. 8 hours. Tradjenta, Synthroid 50 mcg daily, Solu-Medrol 40 mg IV push q. 8 hours, Singu lair 10 mg p.o. at bedtime, Protonix 40 mg daily, promethazine 6.25 mg p.o. q. 6 hours, Crestor 2.5 m g p.o. at bedtime, salmeterol 1 puff inhalation q. 12 hours, theophylline 400 mg p.o. daily, Ambien 5 mg p.o. at bedtime. LABORATORY DATA: From this morning, WBC 14.2, hemoglobin 12.3, hematocrit 38.5, platelets 187. Sodi um 134, potassium 4.1, chloride 97, bicarbonate 28, BUN 21, creatinine 0.7, glucose 314, calcium 8.6, AST 29, ALT 33, alkaline phosphatase 93, total protein 6.5. ASSESSMENT AND PLAN: Elderly female with history of chronic obstructive pulmonary disease, asthma, d iabetes mellitus, hyperlipidemia, hypothyroidism, coronary artery disease, admitted for chronic obstr uctive pulmonary disease exacerbation and acute bronchitis. The patient is still having acute dyspne a on exertion and persistent cough. Will continue with bronchodilators, nebulizer treatment, antibio tics, IV Solu-Medrol. Her sugars are uncontrolled. Will decrease her Solu-Medrol to 40 mg IV q.12 h ours. Will follow Accu-Cheks. Continue with other home medication. I discussed with the patient re garding subacute rehabilitation placement. The patient wanted to discuss with her daughter and decid e on a subacute rehab. Will continue with other current medication. Chandan Parry MD cc: [id number] TT: 01/04/2017 00:42:24 Confirmation # [id number] Dictation # [id number]
[2017-01-04] MEDS: Albuterol-Ipratrop 3 mg / 0.5 (3 ml) UD INH SCH ×4 (01:19→19:32)
--- NOTE | 2017-01-04 01:38 | CP.PCM.PN ---
Subjective - Date & Time of Evaluation Date of Evaluation: 01/03/17 Time of Evaluation: 17:30 - Subjective Subjective: Patient seen and evaluated No chest pain Medical management for now for CAD Objective - Vital Signs/Intake and Output Vital Signs (last 24 hours): Temp Pulse Resp BP Pulse Ox 97.1 F L 60 20 127/63 96 01/03/17 23:35 01/03/17 23:35 01/03/17 23:35 01/03/17 23:35 01/03/17 23:35 - Medications Medications: Current Medications Albuterol/Ipratropium (Duoneb 3 Mg/0.5 Mg (3 Ml) Ud) 3 ml INH RQ6 [facility] Last Admin: 01/04/17 01:19 Dose: 3 ml Aspirin (Ecotrin) 81 mg PO DAILY [facility] Last Admin: 01/03/17 09:29 Dose: 81 mg Furosemide (Lasix) 40 mg IVP DAILY [facility] Last Admin: 01/03/17 09:36 Dose: 40 mg Heparin Sodium (Porcine) (Heparin) 5,000 units SC Q8 [facility] Last Admin: 01/03/17 21:34 Dose: 5,000 units Home Med (Patient's Own Medication) 5 tab PO DAILY [facility] Last Admin: 01/03/17 09:29 Dose: 5 tab Ceftriaxone Sodium 1 gm/ (Sodium Chloride) 100 mls @ 100 mls/hr IVPB Q24H [facility] Last Admin: 01/03/17 13:22 Dose: 100 mls/hr Insulin Human Regular (Novolin R) 0 unit SC ACHS [facility] PRN Reason: Protocol Last Admin: 01/03/17 21:35 Dose: Not Given Levothyroxine Sodium (Synthroid) 50 mcg PO DAILY@0630 [facility] Last Admin: 01/03/17 05:34 Dose: 50 mcg Methylprednisolone (Solu-Medrol) 40 mg IVP Q8H [facility] Last Admin: 01/03/17 21:35 Dose: 40 mg Montelukast Sodium (Singulair) 10 mg PO HS [facility] Last Admin: 01/03/17 21:34 Dose: 10 mg Pantoprazole Sodium (Protonix Ec Tab) 40 mg PO DAILY [facility] Last Admin: 01/03/17 09:29 Dose: 40 mg Promethazine HCl (Phenergan Syrup) 6.25 mg PO Q6H PRN PRN Reason: Cough Last Admin: 01/03/17 19:03 Dose: 6.25 mg Rosuvastatin Calcium (Crestor) 2.5 mg PO HS [facility] Last Admin: 01/03/17 21:34 Dose: 2.5 mg Fluticasone/Salmeterol (Advair Diskus 250/50) 1 puff INH RQ12 [facility] Last Admin: 01/03/17 20:25 Dose: 1 puff Theophylline (Tayo-24) 400 mg PO DAILY [facility] Zolpidem Tartrate (Ambien) 5 mg PO HS PRN PRN Reason: Insomnia Last Admin: 01/03/17 22:22 Dose: 5 mg - Labs Labs: 01/03/17 06:15 01/03/17 06:15
[2017-01-04] MEDS: MethylPREDNISolone 40 mg Vial IVP SCH ×3 (05:20→22:26)
[2017-01-04] MEDS: Levothyroxine 50 MCG TAB PO SCH (06:22)
[2017-01-04] MEDS: Fluticasone-Salmeterol 250-50mcg Diskus INH SCH (07:24)
[2017-01-04] MEDS: (Novolin R) Insulin Human Regular 100 units/ml vial SC SCH ×4 (07:44→22:32)
[2017-01-04] MEDS: Pantoprazole 40 mg EC Tab PO SCH (09:23)
[2017-01-04] MEDS: TRADJENTA 5 MG PO SCH (09:23)
--- NOTE | 2017-01-04 11:12 | CP.PCM.PN ---
Subjective - Date & Time of Evaluation Date of Evaluation: 01/04/17 Time of Evaluation: 11:00 - Subjective Subjective: Progress note dictated #[id number] Objective - Vital Signs/Intake and Output Vital Signs (last 24 hours): Temp Pulse Resp BP Pulse Ox 97.7 F 57 L 20 130/84 100 01/04/17 07:12 01/04/17 07:12 01/04/17 07:12 01/04/17 09:23 01/04/17 07:12 Intake and Output: 01/04/17 01/04/17 06:59 18:59 Intake Total 600 Balance 600 - Medications Medications: Current Medications Albuterol/Ipratropium (Duoneb 3 Mg/0.5 Mg (3 Ml) Ud) 3 ml INH RQ6 [facility] Last Admin: 01/04/17 07:24 Dose: 3 ml Aspirin (Ecotrin) 81 mg PO DAILY [facility] Last Admin: 01/04/17 09:23 Dose: 81 mg Docusate Sodium (Colace) 100 mg PO BID [facility] Last Admin: 01/04/17 11:06 Dose: 100 mg Furosemide (Lasix) 40 mg IVP DAILY [facility] Last Admin: 01/04/17 09:23 Dose: 40 mg Heparin Sodium (Porcine) (Heparin) 5,000 units SC Q8 [facility] Last Admin: 01/04/17 07:34 Dose: 5,000 units Home Med (Patient's Own Medication) 5 tab PO DAILY [facility] Last Admin: 01/04/17 09:23 Dose: 5 tab Ceftriaxone Sodium 1 gm/ (Sodium Chloride) 100 mls @ 100 mls/hr IVPB Q24H [facility] Last Admin: 01/03/17 13:22 Dose: 100 mls/hr Insulin Human Regular (Novolin R) 0 unit SC ACHS [facility] PRN Reason: Protocol Last Admin: 01/04/17 07:44 Dose: 3 unit Levothyroxine Sodium (Synthroid) 50 mcg PO DAILY@0630 [facility] Last Admin: 01/04/17 06:22 Dose: 50 mcg Methylprednisolone (Solu-Medrol) 40 mg IVP Q8H [facility] Last Admin: 01/04/17 05:20 Dose: 40 mg Montelukast Sodium (Singulair) 10 mg PO HS [facility] Last Admin: 01/03/17 21:34 Dose: 10 mg Pantoprazole Sodium (Protonix Ec Tab) 40 mg PO DAILY [facility] Last Admin: 01/04/17 09:23 Dose: 40 mg Promethazine HCl (Phenergan Syrup) 6.25 mg PO Q6H PRN PRN Reason: Cough Last Admin: 01/03/17 19:03 Dose: 6.25 mg Rosuvastatin Calcium (Crestor) 2.5 mg PO HS [facility] Last Admin: 01/03/17 21:34 Dose: 2.5 mg Fluticasone/Salmeterol (Advair Diskus 250/50) 1 puff INH RQ12 [facility] Last Admin: 01/04/17 07:24 Dose: 1 puff Theophylline (Tayo-24) 400 mg PO DAILY [facility] Zolpidem Tartrate (Ambien) 5 mg PO HS PRN PRN Reason: Insomnia Last Admin: 01/03/17 22:22 Dose: 5 mg - Labs Labs: 01/03/17 06:15 01/03/17 06:15
[2017-01-04] MEDS: Promethazine 6.25 MG/5 ML CUP PO SCH ×3 (11:28→22:34)
[2017-01-04] MEDS: Theophylline 200mg ER 24 hrs Cap PO SCH (14:18)
--- NOTE | 2017-01-04 15:52 | CP.PCM.PN ---
Subjective - Date & Time of Evaluation Date of Evaluation: 01/04/17 Time of Evaluation: 12:40 - Subjective Subjective: Patient seen and examined. Still complaining of shortness of breath cough and wheezing Objective - Vital Signs/Intake and Output Vital Signs (last 24 hours): Temp Pulse Resp BP Pulse Ox 97.7 F 106 H 20 130/84 100 01/04/17 07:12 01/04/17 13:55 01/04/17 07:12 01/04/17 09:23 01/04/17 07:12 Intake and Output: 01/04/17 01/04/17 06:59 18:59 Intake Total 600 650 Balance 600 650 - Medications Medications: Current Medications Albuterol/Ipratropium (Duoneb 3 Mg/0.5 Mg (3 Ml) Ud) 3 ml INH RQ6 [facility] Last Admin: 01/04/17 13:18 Dose: 3 ml Aspirin (Ecotrin) 81 mg PO DAILY [facility] Last Admin: 01/04/17 09:23 Dose: 81 mg Docusate Sodium (Colace) 100 mg PO BID [facility] Last Admin: 01/04/17 11:06 Dose: 100 mg Furosemide (Lasix) 40 mg IVP DAILY [facility] Last Admin: 01/04/17 09:23 Dose: 40 mg Heparin Sodium (Porcine) (Heparin) 5,000 units SC Q8 [facility] Last Admin: 01/04/17 13:08 Dose: 5,000 units Home Med (Patient's Own Medication) 5 tab PO DAILY [facility] Last Admin: 01/04/17 09:23 Dose: 5 tab Ceftriaxone Sodium 1 gm/ (Sodium Chloride) 100 mls @ 100 mls/hr IVPB Q24H [facility] Last Admin: 01/04/17 13:09 Dose: 100 mls/hr Insulin Human Regular (Novolin R) 0 unit SC ACHS [facility] PRN Reason: Protocol Last Admin: 01/04/17 12:30 Dose: 3 unit Levothyroxine Sodium (Synthroid) 50 mcg PO DAILY@0630 [facility] Last Admin: 01/04/17 06:22 Dose: 50 mcg Methylprednisolone (Solu-Medrol) 40 mg IVP Q8H [facility] Last Admin: 01/04/17 13:08 Dose: 40 mg Montelukast Sodium (Singulair) 10 mg PO HS [facility] Last Admin: 01/03/17 21:34 Dose: 10 mg Pantoprazole Sodium (Protonix Ec Tab) 40 mg PO DAILY [facility] Last Admin: 01/04/17 09:23 Dose: 40 mg Promethazine HCl (Phenergan Syrup) 6.25 mg PO Q6H [facility] Last Admin: 01/04/17 11:28 Dose: 6.25 mg Rosuvastatin Calcium (Crestor) 2.5 mg PO HS [facility] Last Admin: 01/03/17 21:34 Dose: 2.5 mg Fluticasone/Salmeterol (Advair Diskus 250/50) 1 puff INH RQ12 [facility] Last Admin: 01/04/17 07:24 Dose: 1 puff Theophylline (Tayo-24) 400 mg PO DAILY [facility] Last Admin: 01/04/17 14:18 Dose: 400 mg Zolpidem Tartrate (Ambien) 5 mg PO HS PRN PRN Reason: Insomnia Last Admin: 01/03/17 22:22 Dose: 5 mg - Labs Labs: 01/03/17 06:15 01/03/17 06:15 - Constitutional Appears: No Acute Distress - Head Exam Head Exam: ATRAUMATIC, NORMOCEPHALIC - Eye Exam Eye Exam: Normal appearance - ENT Exam ENT Exam: Mucous Membranes Moist - Neck Exam Neck Exam: Full ROM, Normal Inspection - Respiratory Exam Respiratory Exam: Rhonchi, Wheezes - Cardiovascular Exam Cardiovascular Exam: REGULAR RHYTHM - GI/Abdominal Exam GI & Abdominal Exam: Soft, Normal Bowel Sounds - Extremities Exam Extremities Exam: Normal Inspection - Neurological Exam Neurological Exam: Alert, Oriented x3 Assessment and Plan (1) Acute exacerbation of chronic obstructive airways disease Assessment & Plan: Patient is still complaining of cough and shortness of breath Continue with IV steroids, antibiotics and bronchodilators Status: Acute
[2017-01-04] MEDS: Budesonide 0.5 mg/2 ml Inhal Susp UD INH SCH (20:18)
[2017-01-04] MEDS: Rosuvastatin Calcium 2.5 mg Tab PO SCH (22:25)
--- NOTE | 2017-01-04 22:38 | PN ---
DATE: 01/04/2017 The patient was seen and examined at bedside. She is still complaining of shortness of breath on exe rtion and cough, not able to walk to the bathroom without getting short of breath. Denies any headac he, dizziness. Denies any chest pain. Denies any nausea, vomiting, abdominal pain, diarrhea or cons tipation. Denies any urinary complaints. Denies any leg pains or leg cramps. PHYSICAL EXAMINATION: GENERAL: Elderly female lying in bed, in no acute distress. VITAL SIGNS: Blood pressure 121/74, pulse 88, respiration 18, temperature 98.2 degrees Fahrenheit, O 2 sats 96% on 2 liters nasal cannula. HEENT: Pupils equal, round, reacting to light and accommodation, extraocular muscles intact. No ict erus, no pallor. No oral thrush. No pharyngeal congestion. NECK: Supple. No JVD. LUNGS: Bilateral vesicular breath sounds. Bilateral coarse wheezing heard, no rhonchi. CARDIOVASCULAR: S1, S2 present, regular. ABDOMEN: Soft, nontender. Bowel sounds present. No guarding, no rigidity, no rebound tenderness no barrett. CENTRAL NERVOUS SYSTEM: Alert, awake, oriented x 3. No focal deficits noted. EXTREMITIES: No edema, palpable peripheral pulses. MEDICATIONS: Include DuoNeb, aspirin 81 mg daily, Pulmicort, Rocephin 1 gram daily, Colace 100 mg p. o. b.i.d., Lasix 40 mg IV push daily, heparin 5000 units subQ at bedtime, Tradjenta, Synthroid 50 mcg daily, Solu-Medrol 40 mg IV q. 8 hours, Singulair 10 mg daily, Protonix 40 mg daily, Phenergan cough syrup, Crestor 2.5 mg at bedtime p.r.n., theophylline 400 mg p.o. daily, Ambien 5 mg at bedtime. LABORATORY: No new labs from this morning. Accu-Cheks: At 3:30; 267, 264, 416, 4 48. ASSESSMENT AND PLAN: Elderly female with chronic obstructive pulmonary disease exacerbation, diabete s mellitus, hyperlipidemia, hypothyroidism. The patient is still symptomatic with exertional shortne ss of breath and persistent cough. We will continue with nebulizer treatments, antibiotics, and ster oids. Continue with theophylline and Pulmicort as ordered. Accu-Cheks are high. As patient's sympt oms got worse this morning, Solu-Medrol is now changed to q. 12 hours. We will continue to monitor t he patient closely. We will repeat labs in the morning. Discussed with pulmonary. Chandan Parry MD cc: [id number] TT: 01/04/2017 22:36:59 Confirmation # [id number] Dictation # [id number] vn
[2017-01-05] MEDS: Albuterol-Ipratrop 3 mg / 0.5 (3 ml) UD INH SCH ×4 (01:13→19:42)
--- NOTE | 2017-01-05 05:08 | CP.PCM.PN ---
Subjective - Date & Time of Evaluation Date of Evaluation: 01/04/17 Time of Evaluation: 16:20 - Subjective Subjective: Patient seen and evaluated Still with dyspnea No chest pain Patient on bronchodilator therapy Objective - Vital Signs/Intake and Output Vital Signs (last 24 hours): Temp Pulse Resp BP Pulse Ox 97.8 F 90 20 117/72 95 01/04/17 23:45 01/05/17 01:13 01/04/17 23:45 01/04/17 23:45 01/04/17 23:45 Intake and Output: 01/04/17 01/05/17 18:59 06:59 Intake Total 650 Balance 650 - Medications Medications: Current Medications Albuterol/Ipratropium (Duoneb 3 Mg/0.5 Mg (3 Ml) Ud) 3 ml INH RQ6 [facility] Last Admin: 01/05/17 01:13 Dose: 3 ml Aspirin (Ecotrin) 81 mg PO DAILY [facility] Last Admin: 01/04/17 09:23 Dose: 81 mg Budesonide (Pulmicort Respules) 0.5 mg INH RQ12 [facility] Last Admin: 01/04/17 20:18 Dose: Not Given Docusate Sodium (Colace) 100 mg PO BID [facility] Last Admin: 01/04/17 19:52 Dose: 100 mg Furosemide (Lasix) 40 mg IVP DAILY [facility] Last Admin: 01/04/17 09:23 Dose: 40 mg Heparin Sodium (Porcine) (Heparin) 5,000 units SC Q8 [facility] Last Admin: 01/04/17 22:25 Dose: 5,000 units Home Med (Patient's Own Medication) 5 tab PO DAILY [facility] Last Admin: 01/04/17 09:23 Dose: 5 tab Ceftriaxone Sodium 1 gm/ (Sodium Chloride) 100 mls @ 100 mls/hr IVPB Q24H [facility] Last Admin: 01/04/17 13:09 Dose: 100 mls/hr Insulin Human Regular (Novolin R) 0 unit SC ACHS [facility] PRN Reason: Protocol Last Admin: 01/04/17 22:32 Dose: 3 unit Levothyroxine Sodium (Synthroid) 50 mcg PO DAILY@0630 [facility] Last Admin: 01/04/17 06:22 Dose: 50 mcg Methylprednisolone (Solu-Medrol) 40 mg IVP Q8H [facility] Last Admin: 01/04/17 22:26 Dose: 40 mg Montelukast Sodium (Singulair) 10 mg PO HS [facility] Last Admin: 01/04/17 22:24 Dose: 10 mg Pantoprazole Sodium (Protonix Ec Tab) 40 mg PO DAILY [facility] Last Admin: 01/04/17 09:23 Dose: 40 mg Promethazine HCl (Phenergan Syrup) 6.25 mg PO Q6H [facility] Last Admin: 01/04/17 22:34 Dose: 6.25 mg Rosuvastatin Calcium (Crestor) 2.5 mg PO HS [facility] Last Admin: 01/04/17 22:25 Dose: 2.5 mg Theophylline (Tayo-24) 400 mg PO DAILY [facility] Last Admin: 01/04/17 14:18 Dose: 400 mg Zolpidem Tartrate (Ambien) 5 mg PO HS PRN PRN Reason: Insomnia Last Admin: 01/04/17 22:25 Dose: 5 mg - Labs Labs: 01/03/17 06:15 01/03/17 06:15
[2017-01-05] MEDS: MethylPREDNISolone 40 mg Vial IVP SCH ×3 (05:24→22:10)
[2017-01-05] MEDS: Promethazine 6.25 MG/5 ML CUP PO SCH ×3 (05:26→18:15)
[2017-01-05] MEDS: Levothyroxine 50 MCG TAB PO SCH (05:42)
[2017-01-05 06:24] LABS: BASO % 0.1 % (0.0-2.0); LYMPH # 0.8 K/uL (1.0-4.3); LYMPH % 7.8 % (20.0-40.0); MEAN CELL VOLUME 77.4 fL (81.0-99.0); MEAN CORPUSCULAR HEMOGLOBIN 25.2 pg (27.0-31.0); MEAN CORPUSCULAR HGB CONC 32.6 g/dL (33.0-37.0); MONO # 0.3 K/uL (0.0-0.8); MONO % 3.5 % (0.0-10.0); PLATELET COUNT 194 K/uL (130-400); RED CELL DISTRIBUTION WIDTH 16.4 % (11.5-14.5); WHITE BLOOD COUNT 9.8 K/uL (4.8-10.8)
[2017-01-05 06:41] LABS: CHLORIDE 95 mmol/L (98-107); SODIUM 133 mmol/L (132-148)
[2017-01-05 06:43] LABS: ALB/GLOB RATIO 1.3 (1.0-2.1); ALKALINE PHOSPHATASE 93 U/L (38-126); AST/SGOT 55 U/L (14-36); BILIRUBIN,TOTAL 0.6 mg/dL (0.2-1.3); CARBON DIOXIDE 29 mmol/L (22-30); GFR AFRICAN-AMERICAN > 60; TOTAL PROTEIN 6.7 g/dL (6.3-8.3)
[2017-01-05 06:44] LABS: ALT/SGPT 61 U/L (9-52); BLOOD UREA NITROGEN 17 mg/dL (7-17); CALCIUM 8.6 mg/dl (8.6-10.4); GLUCOSE,RANDOM 268 mg/dL (65-105)
[2017-01-05] MEDS: (Novolin R) Insulin Human Regular 100 units/ml vial SC SCH ×4 (08:06→22:10)
[2017-01-05 08:37] LABS: NEUTROPHIL 90 % (50-75); TOTAL CELLS COUNTED 100
[2017-01-05 08:41] LABS: LARGE PLATELETS PRESENT
[2017-01-05] MEDS: Budesonide 0.5 mg/2 ml Inhal Susp UD INH SCH ×3 (09:03→19:43)
[2017-01-05] MEDS: Theophylline 200mg ER 24 hrs Cap PO SCH (09:35)
[2017-01-05] MEDS: Pantoprazole 40 mg EC Tab PO SCH (09:35)
[2017-01-05] MEDS: TRADJENTA 5 MG PO SCH (10:12)
--- NOTE | 2017-01-05 10:26 | CP.PCM.PN ---
Subjective - Date & Time of Evaluation Date of Evaluation: 01/05/17 Time of Evaluation: 10:15 - Subjective Subjective: Progress note dictated # [id number] Objective - Vital Signs/Intake and Output Vital Signs (last 24 hours): Temp Pulse Resp BP Pulse Ox 97.7 F 73 20 128/72 96 01/05/17 07:10 01/05/17 07:10 01/05/17 07:10 01/05/17 09:35 01/05/17 07:10 - Medications Medications: Current Medications Albuterol/Ipratropium (Duoneb 3 Mg/0.5 Mg (3 Ml) Ud) 3 ml INH RQ6 [facility] Last Admin: 01/05/17 09:03 Dose: 3 ml Aspirin (Ecotrin) 81 mg PO DAILY [facility] Last Admin: 01/05/17 09:35 Dose: 81 mg Budesonide (Pulmicort Respules) 0.5 mg INH RQ12 [facility] Last Admin: 01/05/17 09:03 Dose: 0.5 mg Docusate Sodium (Colace) 100 mg PO BID [facility] Last Admin: 01/05/17 09:36 Dose: 100 mg Furosemide (Lasix) 40 mg IVP DAILY [facility] Last Admin: 01/05/17 09:35 Dose: 40 mg Heparin Sodium (Porcine) (Heparin) 5,000 units SC Q8 [facility] Last Admin: 01/05/17 05:24 Dose: 5,000 units Home Med (Patient's Own Medication) 1 tab PO DAILY [facility] Ceftriaxone Sodium 1 gm/ (Sodium Chloride) 100 mls @ 100 mls/hr IVPB Q24H [facility] Last Admin: 01/04/17 13:09 Dose: 100 mls/hr Insulin Human Regular (Novolin R) 0 unit SC ACHS [facility] PRN Reason: Protocol Last Admin: 01/05/17 08:06 Dose: 3 unit Levothyroxine Sodium (Synthroid) 50 mcg PO DAILY@0630 [facility] Last Admin: 01/05/17 05:42 Dose: 50 mcg Methylprednisolone (Solu-Medrol) 40 mg IVP Q8H [facility] Last Admin: 01/05/17 05:24 Dose: 40 mg Montelukast Sodium (Singulair) 10 mg PO HS [facility] Last Admin: 01/04/17 22:24 Dose: 10 mg Pantoprazole Sodium (Protonix Ec Tab) 40 mg PO DAILY [facility] Last Admin: 01/05/17 09:35 Dose: 40 mg Promethazine HCl (Phenergan Syrup) 6.25 mg PO Q6H [facility] Last Admin: 01/05/17 05:26 Dose: 6.25 mg Rosuvastatin Calcium (Crestor) 2.5 mg PO HS [facility] Last Admin: 01/04/17 22:25 Dose: 2.5 mg Theophylline (Tayo-24) 400 mg PO DAILY [facility] Last Admin: 01/05/17 09:35 Dose: 400 mg Zolpidem Tartrate (Ambien) 5 mg PO HS PRN PRN Reason: Insomnia Last Admin: 01/04/17 22:25 Dose: 5 mg - Labs Labs: 01/05/17 06:14 01/05/17 06:14
--- NOTE | 2017-01-05 16:04 | CP.PCM.PN ---
Subjective - Date & Time of Evaluation Date of Evaluation: 01/05/17 Time of Evaluation: 08:30 - Subjective Subjective: patient seen and examined. Still complaining of cough, wheezing and shortness of breath on minimal exertion Objective - Vital Signs/Intake and Output Vital Signs (last 24 hours): Temp Pulse Resp BP Pulse Ox 97.7 F 111 H 20 97/62 L 98 01/05/17 07:10 01/05/17 14:30 01/05/17 07:10 01/05/17 14:30 01/05/17 13:00 Intake and Output: 01/05/17 01/05/17 06:59 18:59 Intake Total 700 Balance 700 - Medications Medications: Current Medications Albuterol/Ipratropium (Duoneb 3 Mg/0.5 Mg (3 Ml) Ud) 3 ml INH RQ6 [facility] Last Admin: 01/05/17 13:20 Dose: 3 ml Aspirin (Ecotrin) 81 mg PO DAILY [facility] Last Admin: 01/05/17 09:35 Dose: 81 mg Budesonide (Pulmicort Respules) 0.5 mg INH RQ12 [facility] Last Admin: 01/05/17 09:03 Dose: 0.5 mg Docusate Sodium (Colace) 100 mg PO BID [facility] Last Admin: 01/05/17 09:36 Dose: 100 mg Furosemide (Lasix) 40 mg IVP DAILY [facility] Last Admin: 01/05/17 09:35 Dose: 40 mg Home Med (Patient's Own Medication) 1 tab PO DAILY [facility] Last Admin: 01/05/17 10:12 Dose: 1 tab Ceftriaxone Sodium 1 gm/ (Sodium Chloride) 100 mls @ 100 mls/hr IVPB Q24H [facility] Last Admin: 01/05/17 13:35 Dose: 100 mls/hr Insulin Human Regular (Novolin R) 0 unit SC ACHS [facility] PRN Reason: Protocol Last Admin: 01/05/17 12:08 Dose: 4 unit Levothyroxine Sodium (Synthroid) 50 mcg PO DAILY@0630 [facility] Last Admin: 01/05/17 05:42 Dose: 50 mcg Methylprednisolone (Solu-Medrol) 40 mg IVP Q8H [facility] Last Admin: 01/05/17 13:33 Dose: 40 mg Montelukast Sodium (Singulair) 10 mg PO HS [facility] Last Admin: 01/04/17 22:24 Dose: 10 mg Pantoprazole Sodium (Protonix Ec Tab) 40 mg PO DAILY [facility] Last Admin: 01/05/17 09:35 Dose: 40 mg Promethazine HCl (Phenergan Syrup) 6.25 mg PO Q6H [facility] Last Admin: 01/05/17 13:41 Dose: 6.25 mg Rosuvastatin Calcium (Crestor) 2.5 mg PO HS [facility] Last Admin: 01/04/17 22:25 Dose: 2.5 mg Theophylline (Tayo-24) 400 mg PO DAILY [facility] Last Admin: 01/05/17 09:35 Dose: 400 mg Zolpidem Tartrate (Ambien) 5 mg PO HS PRN PRN Reason: Insomnia Last Admin: 01/04/17 22:25 Dose: 5 mg - Labs Labs: 01/05/17 06:14 01/05/17 06:14 - Head Exam Head Exam: ATRAUMATIC, NORMOCEPHALIC - Eye Exam Eye Exam: Normal appearance - ENT Exam ENT Exam: Mucous Membranes Moist - Neck Exam Neck Exam: Normal Inspection - Respiratory Exam Respiratory Exam: Rhonchi, Wheezes - Cardiovascular Exam Cardiovascular Exam: REGULAR RHYTHM - GI/Abdominal Exam GI & Abdominal Exam: Soft, Normal Bowel Sounds Assessment and Plan (1) Acute exacerbation of chronic obstructive airways disease Assessment & Plan: continue IV steroids, nebulizer treatment and antibiotic/antitussive Status: Acute
[2017-01-05] MEDS ORDERED: Albuterol-Ipratrop 3 mg / 0.5 (3 ml) UD INH STA (18:21)
--- NOTE | 2017-01-05 21:49 | CP.PCM.PN ---
Subjective - Date & Time of Evaluation Date of Evaluation: 01/05/17 Time of Evaluation: 14:00 - Subjective Subjective: Patient seen and evaluated Still with some dyspnea Objective - Vital Signs/Intake and Output Vital Signs (last 24 hours): Temp Pulse Resp BP Pulse Ox 97.4 F L 97 H 18 93/57 L 96 01/05/17 16:00 01/05/17 16:00 01/05/17 16:00 01/05/17 16:00 01/05/17 16:00 Intake and Output: 01/05/17 01/06/17 18:59 06:59 Intake Total 700 Balance 700 - Medications Medications: Current Medications Albuterol/Ipratropium (Duoneb 3 Mg/0.5 Mg (3 Ml) Ud) 3 ml INH RQ6 [facility] Last Admin: 01/05/17 19:42 Dose: Not Given Aspirin (Ecotrin) 81 mg PO DAILY [facility] Last Admin: 01/05/17 09:35 Dose: 81 mg Budesonide (Pulmicort Respules) 0.5 mg INH RQ12 [facility] Last Admin: 01/05/17 19:43 Dose: Not Given Docusate Sodium (Colace) 100 mg PO BID [facility] Last Admin: 01/05/17 18:15 Dose: 100 mg Home Med (Patient's Own Medication) 1 tab PO DAILY [facility] Last Admin: 01/05/17 10:12 Dose: 1 tab Ceftriaxone Sodium 1 gm/ (Sodium Chloride) 100 mls @ 100 mls/hr IVPB Q24H [facility] Last Admin: 01/05/17 13:35 Dose: 100 mls/hr Insulin Human Regular (Novolin R) 0 unit SC ACHS [facility] PRN Reason: Protocol Last Admin: 01/05/17 18:15 Dose: 4 unit Levothyroxine Sodium (Synthroid) 50 mcg PO DAILY@0630 [facility] Last Admin: 01/05/17 05:42 Dose: 50 mcg Methylprednisolone (Solu-Medrol) 40 mg IVP Q8H [facility] Last Admin: 01/05/17 13:33 Dose: 40 mg Montelukast Sodium (Singulair) 10 mg PO HS [facility] Last Admin: 01/04/17 22:24 Dose: 10 mg Pantoprazole Sodium (Protonix Ec Tab) 40 mg PO DAILY [facility] Last Admin: 01/05/17 09:35 Dose: 40 mg Promethazine HCl (Phenergan Syrup) 6.25 mg PO Q6H [facility] Last Admin: 01/05/17 18:15 Dose: 6.25 mg Rosuvastatin Calcium (Crestor) 2.5 mg PO HS [facility] Last Admin: 01/04/17 22:25 Dose: 2.5 mg Theophylline (Tayo-24) 400 mg PO DAILY [facility] Last Admin: 01/05/17 09:35 Dose: 400 mg Zolpidem Tartrate (Ambien) 5 mg PO HS PRN PRN Reason: Insomnia Last Admin: 01/04/17 22:25 Dose: 5 mg - Labs Labs: 01/05/17 06:14 01/05/17 06:14
--- NOTE | 2017-01-05 21:50 | PN ---
DATE: 01/05/2017 The patient was seen and examined at bedside. The patient is still complaining of persistent cough a nd worsening dyspnea on exertion. Is not able to walk to the bathroom without getting shortness of b reath. Denies any headache or dizziness. Denies any fever. Denies any nausea or vomiting. Denies any chest pain. Denies any other neurologic symptoms. REVIEW OF SYSTEMS: All other systems reviewed and were found to be negative. PHYSICAL EXAMINATION: GENERAL: Elderly female lying in bed in no acute distress. VITAL SIGNS: Blood pressure 128/72, pulse 110, respiration 20, temperature 97.7 degrees Fahrenheit, O2 sats 98% on 2 liters nasal cannula. HEENT: Pupils equal, round, reacting to light and accommodation. Extraocular muscles intact. No ic terus, no pallor. No oral thrush. No pharyngeal congestion. NECK: Supple. No JVD. LUNGS: Bilateral vesicular breath sounds. Bilateral coarse wheezing and no rhonchi. CARDIOVASCULAR: S1, S2 present, regular. ABDOMEN: Soft, nontender. Bowel sounds present. No guarding, no rigidity, no rebound tenderness no barrett. CENTRAL NERVOUS SYSTEM: Alert, awake, oriented x 3. No focal deficits noted. EXTREMITIES: No edema. Palpable peripheral pulses. MEDICATIONS: Include DuoNeb, aspirin 81 mg daily, Pulmicort Respules, Rocephin 1 gram daily, Colace 100 mg p.o. b.i.d., Lasix 40 mg IV daily, Tradjenta, Synthroid 50 mcg p.o. daily, Solu-Medrol 40 mg IV push q.8 hours, Singulair, Protonix, Phenergan cough syrup, Crestor, theophylline 400 mg daily, Am sandra 5 mg p.o. at bedtime. LABORATORY DATA: WBC 9.8, hemoglobin 13, hematocrit 40, platelets 194. Sodium 133, potassium 4.0, c hloride 95, bicarbonate 29, BUN 17, creatinine 0.6, glucose 286, calcium 8.6, total bilirubin 0.6, T 55, ALT 61, alkaline phosphatase 93, total protein 6.7, albumin 3.8. ASSESSMENT AND PLAN: Elderly female with history of chronic obstructive pulmonary disease, asthma, d iabetes mellitus, hyperlipidemia, hypothyroidism, coronary artery disease, admitted for chronic obstr uctive pulmonary disease exacerbation and acute bronchitis with persistent symptoms and dyspnea on ex ertion. Will continue with bronchodilator treatment, Solu-Medrol and antibiotics. Continue with [facility] medicine. Will follow up with pulmonary. Will add further recommendation as her clinical course progresses. Chandan Parry MD cc: [id number] TT: 01/05/2017 21:49:18 Confirmation # [id number] Dictation # [id number]
[2017-01-05] MEDS: Rosuvastatin Calcium 2.5 mg Tab PO SCH (22:10)
[2017-01-06] MEDS: Promethazine 6.25 MG/5 ML CUP PO SCH ×5 (00:05→23:47)
[2017-01-06] MEDS: Albuterol-Ipratrop 3 mg / 0.5 (3 ml) UD INH SCH ×4 (01:05→19:30)
[2017-01-06] MEDS: Levothyroxine 50 MCG TAB PO SCH (05:43)
[2017-01-06] MEDS: MethylPREDNISolone 40 mg Vial IVP SCH ×3 (05:43→22:01)
[2017-01-06] MEDS: (Novolin R) Insulin Human Regular 100 units/ml vial SC SCH ×4 (07:26→22:02)
[2017-01-06] MEDS: Budesonide 0.5 mg/2 ml Inhal Susp UD INH SCH ×2 (07:42→19:31)
[2017-01-06] MEDS: TRADJENTA 5 MG PO SCH (09:07)
[2017-01-06] MEDS: Theophylline 200mg ER 24 hrs Cap PO SCH (09:08)
[2017-01-06] MEDS: Pantoprazole 40 mg EC Tab PO SCH (09:08)
--- NOTE | 2017-01-06 12:06 | CP.PCM.PN ---
Subjective - Date & Time of Evaluation Date of Evaluation: 01/06/17 Time of Evaluation: 11:55 Objective - Vital Signs/Intake and Output Vital Signs (last 24 hours): Temp Pulse Resp BP Pulse Ox 97.8 F 65 20 106/59 L 95 01/06/17 07:05 01/06/17 07:21 01/06/17 07:05 01/06/17 07:05 01/06/17 07:05 Intake and Output: 01/06/17 01/06/17 06:59 18:59 Intake Total 100 Balance 100 - Medications Medications: Current Medications Albuterol/Ipratropium (Duoneb 3 Mg/0.5 Mg (3 Ml) Ud) 3 ml INH RQ6 [facility] Last Admin: 01/06/17 07:42 Dose: 3 ml Aspirin (Ecotrin) 81 mg PO DAILY [facility] Last Admin: 01/06/17 09:08 Dose: 81 mg Budesonide (Pulmicort Respules) 0.5 mg INH RQ12 [facility] Last Admin: 01/06/17 07:42 Dose: 0.5 mg Docusate Sodium (Colace) 100 mg PO BID [facility] Last Admin: 01/06/17 09:08 Dose: 100 mg Heparin Sodium (Porcine) (Heparin) 5,000 units SC Q8 [facility] Last Admin: 01/06/17 08:13 Dose: 5,000 units Home Med (Patient's Own Medication) 1 tab PO DAILY [facility] Last Admin: 01/06/17 09:07 Dose: 1 tab Ceftriaxone Sodium 1 gm/ (Sodium Chloride) 100 mls @ 100 mls/hr IVPB Q24H [facility] Last Admin: 01/05/17 13:35 Dose: 100 mls/hr Insulin Human Regular (Novolin R) 0 unit SC ACHS [facility] PRN Reason: Protocol Last Admin: 01/06/17 11:35 Dose: 6 unit Levothyroxine Sodium (Synthroid) 50 mcg PO DAILY@0630 [facility] Last Admin: 01/06/17 05:43 Dose: 50 mcg Methylprednisolone (Solu-Medrol) 40 mg IVP Q8H [facility] Last Admin: 01/06/17 05:43 Dose: 40 mg Montelukast Sodium (Singulair) 10 mg PO HS [facility] Last Admin: 01/05/17 22:10 Dose: 10 mg Pantoprazole Sodium (Protonix Ec Tab) 40 mg PO DAILY [facility] Last Admin: 01/06/17 09:08 Dose: 40 mg Promethazine HCl (Phenergan Syrup) 6.25 mg PO Q6H [facility] Last Admin: 01/06/17 11:37 Dose: 6.25 mg Rosuvastatin Calcium (Crestor) 2.5 mg PO HS [facility] Last Admin: 01/05/17 22:10 Dose: 2.5 mg Theophylline (Tayo-24) 400 mg PO DAILY [facility] Last Admin: 01/06/17 09:08 Dose: 400 mg Zolpidem Tartrate (Ambien) 5 mg PO HS PRN PRN Reason: Insomnia Last Admin: 01/05/17 22:10 Dose: 5 mg - Labs Labs: 01/05/17 06:14 01/05/17 06:14
--- NOTE | 2017-01-06 12:37 | CP.PCM.PN ---
<Dilcia Estrella - Last Filed: 01/06/17 12:42> Subjective - Date & Time of Evaluation Date of Evaluation: 01/06/17 Time of Evaluation: 12:29 - Subjective Subjective: PGY-[address] Mckeon Pt seen enjoying lunch. Cough and wheezes improves. No acute complaint Objective - Vital Signs/Intake and Output Vital Signs (last 24 hours): Temp Pulse Resp BP Pulse Ox 97.8 F 65 20 106/59 L 95 01/06/17 07:05 01/06/17 07:21 01/06/17 07:05 01/06/17 07:05 01/06/17 07:05 Intake and Output: 01/06/17 01/06/17 06:59 18:59 Intake Total 100 Balance 100 - Medications Medications: Current Medications Albuterol/Ipratropium (Duoneb 3 Mg/0.5 Mg (3 Ml) Ud) 3 ml INH RQ6 [facility] Last Admin: 01/06/17 07:42 Dose: 3 ml Aspirin (Ecotrin) 81 mg PO DAILY [facility] Last Admin: 01/06/17 09:08 Dose: 81 mg Budesonide (Pulmicort Respules) 0.5 mg INH RQ12 [facility] Last Admin: 01/06/17 07:42 Dose: 0.5 mg Docusate Sodium (Colace) 100 mg PO BID [facility] Last Admin: 01/06/17 09:08 Dose: 100 mg Heparin Sodium (Porcine) (Heparin) 5,000 units SC Q8 [facility] Last Admin: 01/06/17 08:13 Dose: 5,000 units Home Med (Patient's Own Medication) 1 tab PO DAILY [facility] Last Admin: 01/06/17 09:07 Dose: 1 tab Ceftriaxone Sodium 1 gm/ (Sodium Chloride) 100 mls @ 100 mls/hr IVPB Q24H [facility] Last Admin: 01/06/17 12:23 Dose: 100 mls/hr Insulin Human Regular (Novolin R) 0 unit SC ACHS [facility] PRN Reason: Protocol Last Admin: 01/06/17 11:35 Dose: 6 unit Levothyroxine Sodium (Synthroid) 50 mcg PO DAILY@0630 [facility] Last Admin: 01/06/17 05:43 Dose: 50 mcg Methylprednisolone (Solu-Medrol) 40 mg IVP Q8H [facility] Last Admin: 01/06/17 12:23 Dose: 40 mg Montelukast Sodium (Singulair) 10 mg PO HS [facility] Last Admin: 01/05/17 22:10 Dose: 10 mg Pantoprazole Sodium (Protonix Ec Tab) 40 mg PO DAILY [facility] Last Admin: 01/06/17 09:08 Dose: 40 mg Promethazine HCl (Phenergan Syrup) 6.25 mg PO Q6H [facility] Last Admin: 01/06/17 11:37 Dose: 6.25 mg Rosuvastatin Calcium (Crestor) 2.5 mg PO HS [facility] Last Admin: 01/05/17 22:10 Dose: 2.5 mg Theophylline (Tayo-24) 400 mg PO DAILY [facility] Last Admin: 01/06/17 09:08 Dose: 400 mg Zolpidem Tartrate (Ambien) 5 mg PO HS PRN PRN Reason: Insomnia Last Admin: 01/05/17 22:10 Dose: 5 mg - Labs Labs: 01/05/17 06:14 01/05/17 06:14 - Head Exam Head Exam: ATRAUMATIC, NORMAL INSPECTION, NORMOCEPHALIC - Eye Exam Eye Exam: EOMI, Normal appearance - ENT Exam ENT Exam: Mucous Membranes Moist - Respiratory Exam Respiratory Exam: Rhonchi, NORMAL BREATHING PATTERN - Cardiovascular Exam Cardiovascular Exam: REGULAR RHYTHM, +S1, +S2 - GI/Abdominal Exam GI & Abdominal Exam: Soft, Normal Bowel Sounds. absent: Guarding, Rigid, Tenderness - Extremities Exam Extremities Exam: Normal Capillary Refill. absent: Calf Tenderness, Pedal Edema - Neurological Exam Neurological Exam: Alert, Awake - Psychiatric Exam Psychiatric exam: Normal Affect, Normal Mood - Skin Skin Exam: Dry, Warm Assessment and Plan - Assessment and Plan (Free Text) Plan: 76 F with PMHx of CAD, COPD, questionable internittent palpitation, asthma, diabetes, HLD, hypothyroidism admitted for SOB, fever, cough x 4 days. Cardiology was consulted for dyspnea r/o cardiology etiology. Troponin and ProBNP normal. Dyspnea most likely Pulmonary etiology Unlikely CHF CAD, non-obstructive - Continue Medical management - f/u recent echo performed in office ? CV risk - 25% 10-year risk of atherosclerotic cardiovascular disease per pooled cohort equation - consider high dose statin - TSH wnl; on levothyroxine - SBP 110/60s Microcytic RBC - Consider Fe study, B12, folate, fecal occult blood test - primary team for management Diabetes - A1c 6.3 - Accucheck 455 due to steroid, no gap - primary team for management COPD exacerbation - primary and pulm team management - duoneb, budesonide, singular, monteleucast, theophylline, ceftriaxone, solumedrol 40 IV q8 Prophylaxis - heparin q8 Will s/r/d/ with Dr. Mckeon <Willie Mckeon - Last Filed: 01/07/17 05:27> Objective - Vital Signs/Intake and Output Vital Signs (last 24 hours): Temp Pulse Resp BP Pulse Ox 97.3 F L 76 20 91/61 L 96 01/06/17 23:45 01/07/17 01:00 01/06/17 23:45 01/06/17 23:45 01/06/17 23:45 Intake and Output: 01/06/17 01/07/17 18:59 06:59 Intake Total 500 400 Balance 500 400 - Medications Medications: Current Medications Aspirin (Ecotrin) 81 mg PO DAILY [facility] Last Admin: 01/06/17 09:08 Dose: 81 mg Budesonide (Pulmicort Respules) 0.5 mg INH RQ12 [facility] Last Admin: 01/06/17 19:31 Dose: 0.5 mg Docusate Sodium (Colace) 100 mg PO BID [facility] Last Admin: 01/06/17 18:20 Dose: 100 mg Heparin Sodium (Porcine) (Heparin) 5,000 units SC Q8 [facility] Last Admin: 01/06/17 22:01 Dose: 5,000 units Home Med (Patient's Own Medication) 1 tab PO DAILY [facility] Last Admin: 01/06/17 09:07 Dose: 1 tab Ceftriaxone Sodium 1 gm/ (Sodium Chloride) 100 mls @ 100 mls/hr IVPB Q24H [facility] Last Admin: 01/06/17 12:23 Dose: 100 mls/hr Insulin Human Regular (Novolin R) 0 unit SC ACHS [facility] PRN Reason: Protocol Last Admin: 01/06/17 22:02 Dose: Not Given Levothyroxine Sodium (Synthroid) 50 mcg PO DAILY@0630 [facility] Last Admin: 01/06/17 05:43 Dose: 50 mcg Methylprednisolone (Solu-Medrol) 40 mg IVP Q8H [facility] Last Admin: 01/06/17 22:01 Dose: 40 mg Montelukast Sodium (Singulair) 10 mg PO HS [facility] Last Admin: 01/06/17 22:01 Dose: 10 mg Pantoprazole Sodium (Protonix Ec Tab) 40 mg PO DAILY [facility] Last Admin: 01/06/17 09:08 Dose: 40 mg Promethazine HCl (Phenergan Syrup) 6.25 mg PO Q6H [facility] Last Admin: 01/06/17 23:47 Dose: 6.25 mg Rosuvastatin Calcium (Crestor) 2.5 mg PO HS [facility] Last Admin: 01/06/17 22:02 Dose: 2.5 mg Theophylline (Tayo-24) 400 mg PO DAILY [facility] Last Admin: 01/06/17 09:08 Dose: 400 mg Zolpidem Tartrate (Ambien) 5 mg PO HS PRN PRN Reason: Insomnia Last Admin: 01/06/17 22:01 Dose: 5 mg - Labs Labs: 01/05/17 06:14 01/05/17 06:14 Assessment and Plan - Assessment and Plan (Free Text) Assessment: Patient seen and evaluated with the medical billing instructor Agree with the management plan
--- NOTE | 2017-01-06 12:40 | CP.PCM.PN ---
Subjective - Date & Time of Evaluation Date of Evaluation: 01/06/17 Time of Evaluation: 07:00 - Subjective Subjective: patient seen and examined. Breathing and cough much improved Afebrile Objective - Vital Signs/Intake and Output Vital Signs (last 24 hours): Temp Pulse Resp BP Pulse Ox 97.8 F 65 20 106/59 L 95 01/06/17 07:05 01/06/17 07:21 01/06/17 07:05 01/06/17 07:05 01/06/17 07:05 Intake and Output: 01/06/17 01/06/17 06:59 18:59 Intake Total 100 Balance 100 - Medications Medications: Current Medications Albuterol/Ipratropium (Duoneb 3 Mg/0.5 Mg (3 Ml) Ud) 3 ml INH RQ6 [facility] Last Admin: 01/06/17 07:42 Dose: 3 ml Aspirin (Ecotrin) 81 mg PO DAILY [facility] Last Admin: 01/06/17 09:08 Dose: 81 mg Budesonide (Pulmicort Respules) 0.5 mg INH RQ12 [facility] Last Admin: 01/06/17 07:42 Dose: 0.5 mg Docusate Sodium (Colace) 100 mg PO BID [facility] Last Admin: 01/06/17 09:08 Dose: 100 mg Heparin Sodium (Porcine) (Heparin) 5,000 units SC Q8 [facility] Last Admin: 01/06/17 08:13 Dose: 5,000 units Home Med (Patient's Own Medication) 1 tab PO DAILY [facility] Last Admin: 01/06/17 09:07 Dose: 1 tab Ceftriaxone Sodium 1 gm/ (Sodium Chloride) 100 mls @ 100 mls/hr IVPB Q24H [facility] Last Admin: 01/06/17 12:23 Dose: 100 mls/hr Insulin Human Regular (Novolin R) 0 unit SC ACHS [facility] PRN Reason: Protocol Last Admin: 01/06/17 11:35 Dose: 6 unit Levothyroxine Sodium (Synthroid) 50 mcg PO DAILY@0630 [facility] Last Admin: 01/06/17 05:43 Dose: 50 mcg Methylprednisolone (Solu-Medrol) 40 mg IVP Q8H [facility] Last Admin: 01/06/17 12:23 Dose: 40 mg Montelukast Sodium (Singulair) 10 mg PO HS [facility] Last Admin: 01/05/17 22:10 Dose: 10 mg Pantoprazole Sodium (Protonix Ec Tab) 40 mg PO DAILY [facility] Last Admin: 01/06/17 09:08 Dose: 40 mg Promethazine HCl (Phenergan Syrup) 6.25 mg PO Q6H [facility] Last Admin: 01/06/17 11:37 Dose: 6.25 mg Rosuvastatin Calcium (Crestor) 2.5 mg PO HS [facility] Last Admin: 01/05/17 22:10 Dose: 2.5 mg Theophylline (Tayo-24) 400 mg PO DAILY [facility] Last Admin: 01/06/17 09:08 Dose: 400 mg Zolpidem Tartrate (Ambien) 5 mg PO HS PRN PRN Reason: Insomnia Last Admin: 01/05/17 22:10 Dose: 5 mg - Labs Labs: 01/05/17 06:14 01/05/17 06:14 - Head Exam Head Exam: ATRAUMATIC, NORMOCEPHALIC - Eye Exam Eye Exam: Normal appearance - ENT Exam ENT Exam: Mucous Membranes Moist - Neck Exam Neck Exam: Normal Inspection - Respiratory Exam Respiratory Exam: Clear to Ausculation Bilateral - Cardiovascular Exam Cardiovascular Exam: REGULAR RHYTHM Assessment and Plan (1) Acute exacerbation of chronic obstructive airways disease Assessment & Plan: stable from pulmonary standpoint Discharge on prednisone Status: Acute
[2017-01-06] MEDS: Rosuvastatin Calcium 2.5 mg Tab PO SCH (22:02)
[2017-01-07] MEDS: Albuterol-Ipratrop 3 mg / 0.5 (3 ml) UD INH SCH ×3 (01:16→19:37)
[2017-01-07] MEDS: Levothyroxine 50 MCG TAB PO SCH (05:44)
[2017-01-07] MEDS: MethylPREDNISolone 40 mg Vial IVP SCH ×3 (05:44→21:15)
[2017-01-07] MEDS: Promethazine 6.25 MG/5 ML CUP PO SCH ×4 (05:45→22:16)
[2017-01-07] MEDS: Budesonide 0.5 mg/2 ml Inhal Susp UD INH SCH ×2 (07:45→19:37)
[2017-01-07] MEDS: (Novolin R) Insulin Human Regular 100 units/ml vial SC SCH ×4 (08:15→21:18)
[2017-01-07] MEDS: Pantoprazole 40 mg EC Tab PO SCH (09:44)
[2017-01-07] MEDS: TRADJENTA 5 MG PO SCH (09:45)
[2017-01-07] MEDS: Theophylline 200mg ER 24 hrs Cap PO SCH (09:46)
--- NOTE | 2017-01-07 13:21 | CP.PCM.PN ---
Subjective - Date & Time of Evaluation Date of Evaluation: 01/07/17 Time of Evaluation: 13:20 - Subjective Subjective: pt seen and examined, and progress note dictated for dr. Jane Parry#[id number] pt is still c/o sob, cough, [place] after coming back from bath room Objective - Vital Signs/Intake and Output Vital Signs (last 24 hours): Temp Pulse Resp BP Pulse Ox 97.4 F L 68 20 111/58 L 96 01/07/17 08:29 01/07/17 08:38 01/07/17 08:29 01/07/17 08:29 01/07/17 08:29 Intake and Output: 01/07/17 01/07/17 06:59 18:59 Intake Total 400 Balance 400 - Medications Medications: Current Medications Albuterol/Ipratropium (Duoneb 3 Mg/0.5 Mg (3 Ml) Ud) 3 ml INH RQ6 [facility] Aspirin (Ecotrin) 81 mg PO DAILY [facility] Last Admin: 01/07/17 09:44 Dose: 81 mg Budesonide (Pulmicort Respules) 0.5 mg INH RQ12 [facility] Last Admin: 01/07/17 07:45 Dose: 0.5 mg Docusate Sodium (Colace) 100 mg PO BID [facility] Last Admin: 01/07/17 09:44 Dose: 100 mg Heparin Sodium (Porcine) (Heparin) 5,000 units SC Q8 [facility] Last Admin: 01/07/17 05:44 Dose: 5,000 units Home Med (Patient's Own Medication) 1 tab PO DAILY [facility] Last Admin: 01/07/17 09:45 Dose: 1 tab Ceftriaxone Sodium 1 gm/ (Sodium Chloride) 100 mls @ 100 mls/hr IVPB Q24H [facility] Last Admin: 01/07/17 12:23 Dose: 100 mls/hr Insulin Human Regular (Novolin R) 0 unit SC ACHS [facility] PRN Reason: Protocol Last Admin: 01/07/17 08:15 Dose: 4 unit Levothyroxine Sodium (Synthroid) 50 mcg PO DAILY@0630 [facility] Last Admin: 01/07/17 05:44 Dose: 50 mcg Methylprednisolone (Solu-Medrol) 40 mg IVP Q8H [facility] Last Admin: 01/07/17 12:22 Dose: 40 mg Montelukast Sodium (Singulair) 10 mg PO HS [facility] Last Admin: 01/06/17 22:01 Dose: 10 mg Pantoprazole Sodium (Protonix Ec Tab) 40 mg PO DAILY [facility] Last Admin: 01/07/17 09:44 Dose: 40 mg Promethazine HCl (Phenergan Syrup) 6.25 mg PO Q6H [facility] Last Admin: 01/07/17 05:45 Dose: 6.25 mg Rosuvastatin Calcium (Crestor) 2.5 mg PO HS [facility] Last Admin: 01/06/17 22:02 Dose: 2.5 mg Theophylline (Tayo-24) 400 mg PO DAILY [facility] Last Admin: 01/07/17 09:46 Dose: 400 mg Zolpidem Tartrate (Ambien) 5 mg PO HS PRN PRN Reason: Insomnia Last Admin: 01/06/17 22:01 Dose: 5 mg - Labs Labs: 01/05/17 06:14 01/05/17 06:14
[2017-01-07] MEDS: Rosuvastatin Calcium 2.5 mg Tab PO SCH (21:18)
[2017-01-08] MEDS: Albuterol-Ipratrop 3 mg / 0.5 (3 ml) UD INH SCH ×3 (01:46→13:43)
--- NOTE | 2017-01-08 04:09 | CP.PCM.PN ---
Subjective - Date & Time of Evaluation Date of Evaluation: 01/07/17 Time of Evaluation: 10:15 - Subjective Subjective: Patient still with exertional dyspnea Pulmonary mgt for shortness of breath Objective - Vital Signs/Intake and Output Vital Signs (last 24 hours): Temp Pulse Resp BP Pulse Ox 98.0 F 61 20 122/78 99 01/07/17 23:15 01/08/17 00:15 01/07/17 23:15 01/07/17 23:15 01/07/17 23:15 Intake and Output: 01/07/17 01/08/17 18:59 06:59 Intake Total 320 Balance 320 - Medications Medications: Current Medications Albuterol/Ipratropium (Duoneb 3 Mg/0.5 Mg (3 Ml) Ud) 3 ml INH RQ6 [facility] Last Admin: 01/08/17 01:46 Dose: 3 ml Aspirin (Ecotrin) 81 mg PO DAILY [facility] Last Admin: 01/07/17 09:44 Dose: 81 mg Budesonide (Pulmicort Respules) 0.5 mg INH RQ12 [facility] Last Admin: 01/07/17 19:37 Dose: 0.5 mg Docusate Sodium (Colace) 100 mg PO BID [facility] Last Admin: 01/07/17 17:47 Dose: 100 mg Home Med (Patient's Own Medication) 1 tab PO DAILY [facility] Last Admin: 01/07/17 09:45 Dose: 1 tab Ceftriaxone Sodium 1 gm/ (Sodium Chloride) 100 mls @ 100 mls/hr IVPB Q24H [facility] Last Admin: 01/07/17 12:23 Dose: 100 mls/hr Insulin Human Regular (Novolin R) 0 unit SC ACHS [facility] PRN Reason: Protocol Last Admin: 01/07/17 21:18 Dose: 2 unit Levothyroxine Sodium (Synthroid) 50 mcg PO DAILY@0630 [facility] Last Admin: 01/07/17 05:44 Dose: 50 mcg Methylprednisolone (Solu-Medrol) 40 mg IVP Q8H [facility] Last Admin: 01/07/17 21:15 Dose: 40 mg Montelukast Sodium (Singulair) 10 mg PO HS [facility] Last Admin: 01/07/17 21:18 Dose: 10 mg Pantoprazole Sodium (Protonix Ec Tab) 40 mg PO DAILY [facility] Last Admin: 01/07/17 09:44 Dose: 40 mg Promethazine HCl (Phenergan Syrup) 6.25 mg PO Q6H [facility] Last Admin: 01/07/17 22:16 Dose: 6.25 mg Rosuvastatin Calcium (Crestor) 2.5 mg PO HS [facility] Last Admin: 01/07/17 21:18 Dose: 2.5 mg Theophylline (Tayo-24) 400 mg PO DAILY [facility] Last Admin: 01/07/17 09:46 Dose: 400 mg Zolpidem Tartrate (Ambien) 5 mg PO HS PRN PRN Reason: Insomnia Last Admin: 01/07/17 22:10 Dose: 5 mg - Labs Labs: 01/05/17 06:14 01/05/17 06:14
[2017-01-08] MEDS: MethylPREDNISolone 40 mg Vial IVP SCH ×2 (06:16→12:16)
[2017-01-08] MEDS: Levothyroxine 50 MCG TAB PO SCH (06:16)
[2017-01-08] MEDS: Promethazine 6.25 MG/5 ML CUP PO SCH ×2 (06:17→12:16)
[2017-01-08] MEDS: Budesonide 0.5 mg/2 ml Inhal Susp UD INH SCH (07:20)
[2017-01-08] MEDS: (Novolin R) Insulin Human Regular 100 units/ml vial SC SCH ×2 (08:05→12:19)
[2017-01-08] MEDS: Pantoprazole 40 mg EC Tab PO SCH (10:16)
[2017-01-08] MEDS: Theophylline 200mg ER 24 hrs Cap PO SCH (10:16)
[2017-01-08] MEDS: TRADJENTA 5 MG PO SCH (10:17)
--- NOTE | 2017-01-08 13:59 | CP.PCM.PN ---
Objective - Vital Signs/Intake and Output Vital Signs (last 24 hours): Temp Pulse Resp BP Pulse Ox 97.8 F 67 18 117/72 96 01/08/17 09:06 01/08/17 10:27 01/08/17 09:06 01/08/17 09:06 01/08/17 09:06 Intake and Output: 01/08/17 01/08/17 06:59 18:59 Intake Total 560 Balance 560 - Medications Medications: Current Medications Albuterol/Ipratropium (Duoneb 3 Mg/0.5 Mg (3 Ml) Ud) 3 ml INH RQ6 [facility] Last Admin: 01/08/17 13:43 Dose: 3 ml Aspirin (Ecotrin) 81 mg PO DAILY [facility] Last Admin: 01/08/17 10:16 Dose: 81 mg Budesonide (Pulmicort Respules) 0.5 mg INH RQ12 [facility] Last Admin: 01/08/17 07:20 Dose: 0.5 mg Docusate Sodium (Colace) 100 mg PO BID [facility] Last Admin: 01/08/17 10:16 Dose: 100 mg Home Med (Patient's Own Medication) 1 tab PO DAILY [facility] Last Admin: 01/08/17 10:17 Dose: 1 tab Ceftriaxone Sodium 1 gm/ (Sodium Chloride) 100 mls @ 100 mls/hr IVPB Q24H [facility] Last Admin: 01/08/17 12:16 Dose: 100 mls/hr Insulin Human Regular (Novolin R) 0 unit SC ACHS [facility] PRN Reason: Protocol Last Admin: 01/08/17 12:19 Dose: 6 unit Levothyroxine Sodium (Synthroid) 50 mcg PO DAILY@0630 [facility] Last Admin: 01/08/17 06:16 Dose: 50 mcg Methylprednisolone (Solu-Medrol) 40 mg IVP Q8H [facility] Last Admin: 01/08/17 12:16 Dose: 40 mg Montelukast Sodium (Singulair) 10 mg PO HS [facility] Last Admin: 01/07/17 21:18 Dose: 10 mg Pantoprazole Sodium (Protonix Ec Tab) 40 mg PO DAILY [facility] Last Admin: 01/08/17 10:16 Dose: 40 mg Promethazine HCl (Phenergan Syrup) 6.25 mg PO Q6H [facility] Last Admin: 01/08/17 12:16 Dose: 6.25 mg Rosuvastatin Calcium (Crestor) 2.5 mg PO HS [facility] Last Admin: 01/07/17 21:18 Dose: 2.5 mg Theophylline (Tayo-24) 400 mg PO DAILY [facility] Last Admin: 01/08/17 10:16 Dose: 400 mg Zolpidem Tartrate (Ambien) 5 mg PO HS PRN PRN Reason: Insomnia Last Admin: 01/07/17 22:10 Dose: 5 mg - Labs Labs: 01/05/17 06:14 01/05/17 06:14 Assessment and Plan (1) Acute exacerbation of chronic obstructive airways disease Status: Acute
--- NOTE | 2017-01-08 15:20 | CP.PCM.DIS ---
Provider - Provider Date of Admission: 12/31/16 18:32 Attending physician: Chandan Parry MD Time Spent in preparation of Discharge (in minutes): 35 (follow up with pmd and pulmonary in 1-2 weeks) Hospital Course - Lab Results Lab Results: Micro Results 01/01/17 03:05 Sputum Gram Stain - Final 01/01/17 03:05 Sputum Sputum Culture - Final NORMAL [facility]AL [facility] Most Recent Lab Values WBC 9.8 K/uL (4.8-10.8) 01/05/17 06:14 RBC 5.16 Mil/uL (3.80-5.20) 01/05/17 06:14 Hgb 13.0 g/dL (11.0-16.0) 01/05/17 06:14 Hct 40.0 % (34.0-47.0) 01/05/17 06:14 MCV 77.4 fL (81.0-99.0) L 01/05/17 06:14 MCH 25.2 pg (27.0-31.0) L 01/05/17 06:14 MCHC 32.6 g/dL (33.0-37.0) L 01/05/17 06:14 RDW 16.4 % (11.5-14.5) H 01/05/17 06:14 Plt Count 194 K/uL (130-400) 01/05/17 06:14 MPV 11.0 fL (7.2-11.7) 01/05/17 06:14 Neut % (Auto) 88.6 % (50.0-75.0) H 01/05/17 06:14 Lymph % (Auto) 7.8 % (20.0-40.0) L 01/05/17 06:14 Fallon % (Auto) 3.5 % (0.0-10.0) 01/05/17 06:14 Eos % (Auto) 0.0 % (0.0-4.0) 01/05/17 06:14 Baso % (Auto) 0.1 % (0.0-2.0) 01/05/17 06:14 Neut # 8.6 K/uL (1.8-7.0) H 01/05/17 06:14 Lymph # 0.8 K/uL (1.0-4.3) L 01/05/17 06:14 Fallon # 0.3 K/uL (0.0-0.8) 01/05/17 06:14 Eos # 0.0 K/uL (0.0-0.7) 01/05/17 06:14 Baso # 0.0 K/uL (0.0-0.2) 01/05/17 06:14 Neutrophils % (Manual) 90 % (50-75) H 01/05/17 06:14 Band Neutrophils % 3 % (0-2) H 01/02/17 11:22 Lymphocytes % (Manual) 8 % (20-40) L 01/05/17 06:14 Monocytes % (Manual) 2 % (0-10) 01/05/17 06:14 Platelet Estimate Normal (NORMAL) 01/05/17 06:14 Large Platelets Present 01/05/17 06:14 Anisocytosis (manual) Slight 01/05/17 06:14 Microcytosis (manual) Slight 01/03/17 06:15 Sodium 133 mmol/L (132-148) 01/05/17 06:14 Potassium 4.0 mmol/L (3.6-5.2) 01/05/17 06:14 Chloride 95 mmol/L (98-107) L 01/05/17 06:14 Carbon Dioxide 29 mmol/L (22-30) 01/05/17 06:14 Anion Gap 13 (10-20) 01/05/17 06:14 BUN 17 mg/dL (7-17) 01/05/17 06:14 Creatinine 0.6 MG/DL (0.7-1.2) L 01/05/17 06:14 Est GFR ( Amer) > 60 01/05/17 06:14 Est GFR (Non-Af Amer) > 60 01/05/17 06:14 POC Glucose (mg/dL) > 500 mg/dL (65-110) H* 01/08/17 11:50 Random Glucose 268 mg/dL (65-105) H 01/05/17 06:14 Hemoglobin A1c 6.3 % (4.2-6.5) 01/01/17 05:16 Calcium 8.6 mg/dl (8.6-10.4) 01/05/17 06:14 Magnesium 2.0 mg/dL (1.6-2.3) 12/31/16 16:56 Total Bilirubin 0.6 mg/dL (0.2-1.3) 01/05/17 06:14 AST 55 U/L (14-36) H D 01/05/17 06:14 ALT 61 U/L (9-52) H D 01/05/17 06:14 Alkaline Phosphatase 93 U/L (38-126) 01/05/17 06:14 Troponin I < 0.0120 ng/mL (0.00-0.120) 01/01/17 13:51 NT-Pro-B Natriuret Pep 91.5 pg/mL (0-900) 12/31/16 16:56 Total Protein 6.7 g/dL (6.3-8.3) 01/05/17 06:14 Albumin 3.8 g/dL (3.5-5.0) 01/05/17 06:14 Globulin 2.9 gm/dL (2.2-3.9) 01/05/17 06:14 Albumin/Globulin Ratio 1.3 (1.0-2.1) 01/05/17 06:14 Triglycerides 49 mg/dL (0-149) D 01/01/17 05:16 Cholesterol 119 mg/dL (0-199) 01/01/17 05:16 LDL Cholesterol Direct 58 mg/dL (0-129) 01/01/17 05:16 HDL Cholesterol 48 mg/dL (30-70) 01/01/17 05:16 TSH 3rd Generation 0.51 mIU/L (0.46-4.68) 01/01/17 05:16 Ur L.pneumophila Ag Negative (NEGATIVE) 12/31/16 21:27 Mycoplasma pneumon IgM Negative (NEGATIVE) 12/31/16 21:27 Discharge Exam - Head Exam Head Exam: ATRAUMATIC, NORMAL INSPECTION, NORMOCEPHALIC Discharge Plan - Follow Up Plan Condition: IMPROVED Disposition: HOME/ ROUTINE Instructions: Heart Failure (DC), Heart Healthy Diet (DC), Emphysema (DC), COPD (Chronic Obstructive Pulmonary Disease) (DC), Dyspnea Scale and Exercise ( DC)
[2017-01-08 23:36] VITALS: BP 103/66; PULSE 96; RESP 20; TEMP 97.6; O2SAT 98
--- NOTE | 2017-01-09 20:56 | CP.PCM.PN ---
Subjective - Date & Time of Evaluation Date of Evaluation: 01/08/17 Time of Evaluation: 09:00 - Subjective Subjective: Patient seen and evaluated Breathing better Denies chest pain For discharge today Objective - Vital Signs/Intake and Output Vital Signs (last 24 hours): Temp Pulse Resp BP Pulse Ox 97.6 F 96 H 20 103/66 98 01/08/17 16:00 01/08/17 16:00 01/08/17 16:00 01/08/17 16:00 01/08/17 16:00 - Labs Labs: 01/05/17 06:14 01/05/17 06:14
--- NOTE | 2017-01-10 07:31 | PN ---
DATE: 01/07/2017 The patient is seen and examined for Dr. everett. HISTORY OF PRESENT ILLNESS: The patient is a 76-year-old very pleasant elderly female with a past medical history significant for COPD, asthma, diabetes, hyperlipidemia, hypothyroidism and coronary artery disease who was admitted with a chief complaints of shortness of breath, fever and cough for 4 days. The patient is being treated for possible acute bronchitis. The patient is still complaining of severe cough, barking type and associated with a little sputum and also dyspnea on exertion when she came back from the bathroom. No chest pain, no complaints of chest discomfort while coughing, no headache and no dizziness. PHYSICAL EXAMINATION FOLLOWS: VITAL SIGNS: Blood pressure 111/58, pulse 68, respirations 20, temperature 97.4 and saturation 96%. Height 5 feet 4 inches and weight is 160 pounds. GENERAL: The patient is a 76-year-old elderly female, moderately built , moderately nourished, not in acute distress. HEENT: Pupils normal, reactive to light and accommodation. Conjunctivae pink. Sclerae anicteric. Tongue is moist. NECK: Trachea is midline. LUNGS: Symmetric on both sides. Bilateral expiratory wheeze present and also rhonchi bilaterally. CARDIOVASCULAR: [place] at the fifth intercostal space, midclavicular line. S1 and S2 audible. No murmur or gallop. ABDOMEN: Normal in appearance, soft and tympanic. No guarding and no rigidity. No hepatosplenomegaly. CENTRAL NERVOUS SYSTEM: The patient is alert, awake and oriented x 3. Nonfocal on examination. Cranial nerves II through XII grossly intact. Sensory and motor system is within normal limits. EXTREMITIES: No cyanosis, no clubbing and no edema. CURRENT MEDICATIONS INCLUDES FOLLOWS: Ambien 5 mg at bedtime, Rocephin 1 gram daily, Colace 100 mg p.o. b.i.d., Crestor 2.5 mg p.o. at bedtime, DuoNeb inhaler 3 mL q. 6 hours, Ecotrin 81 mg daily, subcu heparin 5000 q. 8 hours, Novolin R for sliding scale, , Phenergan syrup 6.25 mg p.o. q. 6 hours, Protonix 40 mg p.o. daily, Pulmicort 0.5 mg inhaled q. 12 hours, Singulair 10 mg p.o. at bedtime, Solu-Medrol 40 mg IV q. 8, Synthroid 50 mcg p.o. daily and theophylline 400 mg p.o. daily. LABORATORY DATA: Accu-Cheks 311 and 365. SUMMARY: The patient is a 76-year-old elderly female with a history of hypertension, diabetes, COPD, asthma, coronary artery disease and hypothyroidism who was admitted with fever, cough and shortness of breath. 1. Acute acceleration of COPD. Continue IV antibiotics, continue IV steroids and continue nebulizer treatment. 2. Hypertension. Blood pressure is stable. 3. High sugars, most likely secondary to Solu-Medrol. We will continue present and also Accu-Chek coverage. The patient seen and examined for ____ _ and the patient feels that she is not ready to go home. Still she is coughing with dyspnea on exertion with minimal exertion and even after coming back from the bathroom today. Will continue to monitor. Will follow with you. The patient is seen and examined by . Carter Parry MD cc: [id number] TT: 01/07/2017 16:39:15 Confirmation # [id number] Dictation # [id number] sn MTDD
--- NOTE | 2017-01-13 11:21 | CARD ---
APPROVED REPORT EKG Measurement Heart [id number] <Conclusion> Normal sinus rhythm Possible Left atrial enlargement Inferior infarct, age undetermined Abnormal ECG
== END 2017-01-08 21:00 | disposition home or self-care (01) | DRG 192 ==
LOC: C.ER 14:44 → C.9E 18:32 → C.6T 20:23
PROVIDERS: ADMIT Internal Medicine; ATTEND Internal Medicine
DX: J44.1 Chronic obstructive pulmonary disease with (acute) exacerbation (principal); J44.0 Chronic obstructive pulmonary disease with (acute) lower respiratory infection; J20.9 Acute bronchitis, unspecified; E11.65 Type 2 diabetes mellitus with hyperglycemia; J02.9 Acute pharyngitis, unspecified; I25.10 Atherosclerotic heart disease of native coronary artery without angina pectoris; J45.909 Unspecified asthma, uncomplicated; E03.9 Hypothyroidism, unspecified; E78.5 Hyperlipidemia, unspecified; Z79.4 Long term (current) use of insulin; Z90.710 Acquired absence of both cervix and uterus; Z90.721 Acquired absence of ovaries, unilateral